=== PATIENT | male | born 1955 | race Caucasian/White ===

== ENCOUNTER 2018-01-12 10:41 | Inpatient (IN) ==
[2018-01-12] MEDS ORDERED: Bisacodyl 10 MG Supp RECTAL PRN (14:45)
[2018-01-12] MEDS ORDERED: Acetaminophen 325 MG Tablet PO PRN (14:45)
[2018-01-12] MEDS ORDERED: Dextrose 50% in Water 50 ML Vial IV.PUSH PRN (14:57)
[2018-01-12] MEDS: Insulin NovoLOG Aspart Correctional Sugar Inj SQ SCH ×2 (15:37→17:31)
--- NOTE | 2018-01-12 15:38 | ECHRPT ---
Indication: CHEST PAIN CONCLUSIONS The left ventricular systolic function is normal with an estimated ejection fraction in the range of 55-60%. The left ventricle is not well visualized. Normal left ventricular size. Wall thickness is normal. No regional wall motion abnormalities are present. Mild thickening of the mitral valve leaflets. Trace mitral valve regurgitation. Calcification of the non-coronary cusp. Mild thickening of the tricuspid valve leaflets. There is trace tricuspid valve regurgitation. The estimated pulmonary arterial pressure is 26.2 mmHg. BP: / HR: Rhythm: Sinus MEASUREMENTS (Male / Female) Normal Values Technical Quality:Good 2D ECHO LV Diastolic Diameter PLAX 4.5 cm 4.2 - 5.9 / 3.9 - 5.3 cm LV Systolic Diameter PLAX 3.8 cm IVS Diastolic Thickness 0.9 cm 0.6 - 1.0 / 0.6 - 0.9 cm LVPW Diastolic Thickness 0.9 cm 0.6 - 1.0 / 0.6 - 0.9 cm LV Relative Wall Thickness 0.4 LVOT Diameter 1.9 cm LA Systolic Diameter LX 3.7 cm 3.0 - 4.0 / 2.7 - 3.8 cm LV Ejection Fraction MOD 4C 44.3 % LV Ejection Fraction 4C AL 46.1 % M-MODE Aortic Root Diameter MM 2.2 cm LA Systolic Diameter MM 3.1 cm LA Ao Ratio MM 1.4 AV Cusp Separation MM 1.5 cm DOPPLER AV Peak Velocity 115.0 cm/s AV Peak Gradient 5.3 mmHg LVOT Peak Velocity 79.0 cm/s LVOT Peak Gradient 2.5 mmHg AV Area Cont Eq pk 1.9 cm MV Area PHT 4.4 cm Mitral E Point Velocity 66.1 cm/s Mitral A Point Velocity 96.7 cm/s Mitral E to A Ratio 0.7 LV E' Lateral Velocity 6.8 cm/s Mitral E to LV E' Lateral Ratio 9.7 LV E' Septal Velocity 4.0 cm/s Mitral E to LV E' Septal Ratio 16.5 TR Peak Velocity 201.0 cm/s TR Peak Gradient 16.2 mmHg Right Atrial Pressure 10.0 mmHg Pulmonary Artery Systolic Pressu 26.2 mmHg Right Ventricular Systolic Press 26.2 mmHg PV Peak Velocity 88.2 cm/s PV Peak Gradient 3.1 mmHg FINDINGS LEFT VENTRICLE The left ventricular systolic function is normal with an estimated ejection fraction in the range of 55-60%. The left ventricle is not well visualized. Normal left ventricular size. Wall thickness is normal. No regional wall motion abnormalities are present. RIGHT VENTRICLE Normal right ventricular size and systolic function. LEFT ATRIUM The left atrial size is normal. RIGHT ATRIUM The right atrial size is normal. ATRIAL SEPTUM Normal atrial septal thickness without atrial level shunting by limited color doppler interrogation. AORTA The aortic root and proximal ascending aorta are normal in size on limited imaging. MITRAL VALVE Mild thickening of the mitral valve leaflets. Trace mitral valve regurgitation. AORTIC VALVE Trileaflet aortic valve. Calcification of the non-coronary cusp. TRICUSPID VALVE Mild thickening of the tricuspid valve leaflets. There is trace tricuspid valve regurgitation. The estimated pulmonary arterial pressure is 26.2 mmHg. PULMONARY VALVE No pulmonary valve regurgitation or stenosis. VESSELS The inferior vena cava is normal in size. PERICARDIUM No pericardial effusion. Mihai Mccormick MD, FACC (Electronically Signed) Final Date:12 January 2018 15:37
[2018-01-12] MEDS ORDERED: Nitroglycerin Drip Premix 50 MG/250 ML BOTTLE IV.CONT PRN (15:48)
--- NOTE | 2018-01-12 15:48 | P.HPCC ---
History of Present Illness Service: Critical care medicine Primary Care Physician: No Primary Care Physician Chief Complaint: Chest pain History of Present Illness: 62-year-old male with a medical history significant for diabetes mellitus, multivessel coronary artery disease diagnosed on recent cardiac catheterization done on 12/14/[address] Paul Rocha from [facility] at [facility] Was supposed to see Dr. Mcpherson on 01/16 for evaluation for CABG in his office. Patient presented to [facility] On 01/11 with chest pain and was diagnosed to have unstable angina. He was admitted to the ICU started on a nitroglycerin drip and full anticoagulation with therapeutic Lovenox. He was chest pain-free this morning. Patient was transferred to [facility] as he was scheduled to be evaluated by Dr. Mcpherson for CABG after transfer center spoke with Dr. Mcpherson. I was requested to admit and accepted the patient in transfer to the ICU on critical care medicine service. I evaluated the patient immediately on his arrival to the ICU. He was resting comfortably no acute distress at that time on a nitroglycerin drip at 20 mics per minute. He denied any chest pain or shortness of breath at the time. He denied any nausea or abdominal discomfort melena or rectal bleeding. He was evaluated by cardiology at [facility] this morning and was recommended transferred to [facility] for CABG. Home medications: Aspirin, Lipitor, metoprolol, glimepiride, metformin, sliding scale insulin, Lantus 10 units subcutaneously daily, gabapentin -to be clarified Inpatient Certification: I certify that the inpatient services were ordered in accordance with Medicare regulations governing the order. This includes certification that hospital inpatient services are reasonable and necessary and in the case of services not specified as inpatient-only under 42 CFR 419.22(n), that they are appropriately provided as inpatient services in accordance to with the 2-midnight benchmark under 43 CFR 412.3(e) Estimated Total Length of Stay (Days): 7 Plans for Post Hospital Care: Not yet determined Review of Systems All other systems reviewed negative except as stated in HPI [facility] - History History Provided By: Patient, Family Member - Medical History Medical History: Medical History (Last Updated 01/12/18 @ 15:34 by Adriano Salas MD) Coronary artery disease Diabetes High cholesterol - Surgical History Surgical History: Surgical History (Last Updated 01/12/18 @ 15:34 by Adriano Salas MD) Hx of cardiac cath - Family History Family History: Family History (Last Updated 01/12/18 @ 15:34 by Adriano Salas MD) Brother Family history of diabetes mellitus - Social History I have reviewed the patient's Social History: Yes - Tobacco History Second Hand Smoke Exposure: No Tobacco Use In Past 30 Days: No Smoking Status: Never smoker - Alcohol History How Often Do You Have a Drink Containing Alcohol: Never - Travel History History of Recent Travel: No Recent Travel in the [place] Within the Last 8 Weeks: No Recent Travel Out of the Country Within the Last 8 Weeks: No Medications and Allergies Active Medications: Active Medications Acetaminophen (Tylenol) 650 mg PO Q6H PRN PRN Reason: PAIN 1-10 AND/OR FEVER >101F Al Hydroxide/Mg Hydroxide (Milk Of Magnesia Liq) 30 ml PO Q12H PRN PRN Reason: Mild Constipation Albuterol (Duoneb Neb (Prn)) 1 ampul NEB Q2HR NEB PRN PRN Reason: WHEEZING Aspirin (Ecotrin) 81 mg PO DAILY LUCIO Atorvastatin Calcium (Lipitor) 20 mg PO HS LUCIO Bisacodyl (Dulcolax Supp) 10 mg RECTAL DAILY PRN PRN Reason: SEVERE CONSITIPATION Chlorhexidine Gluconate (Chlorhexidine 2% Cloth) 3 pack TOPICAL DAILY@0400 LUCIO Stop: 01/18/18 03:59 Chlorhexidine Gluconate (Chlorhexidine 2% Cloth) 3 pack TOPICAL DAILY@0400 PRN PRN Reason: Extra cloth needed Stop: 01/18/18 03:59 Dextrose (D50w Vial) 50 ml IV.PUSH UNSCH PRN PRN Reason: PER HYPOGLYCEMIA PROTOCOL Enoxaparin Sodium (Lovenox Inj) 90 mg SQ Q12HR LUCIO Glucagon (Glucagon Inj) 1 mg OTHER PRN PRN PRN Reason: for Hypoglycemia Protocol Insulin Aspart (Novolog Insulin Correctional Sugar Inj) 0 unit SQ ACHS LUCIO; Protocol Insulin Detemir (Levemir Inj) 10 unit SQ HS LUCIO Lactulose (Lactulose Liq) 30 ml PO DAILY PRN PRN Reason: SEVERE CONSITIPATION Lisinopril (Prinivil) mg LUCIO Metoprolol Tartrate (Lopressor) 50 mg PO BID LUCIO Ondansetron HCl (Zofran Inj) 4 mg IV.PUSH Q6H PRN PRN Reason: NAUSEA OR VOMITING Pantoprazole Sodium (Protonix) 20 mg PO DAILY [facility] Senna/Docusate Sodium (Pearl-Colace) 1 tab PO BID LUCIO Sennosides (Senokot) 17.2 mg PO Q12H PRN PRN Reason: Moderate Constipation Sodium Chloride (Ns Flush) 2 ml IV.FLUSH BID LUCIO Sodium Chloride (Ns Flush) 2 ml IV.FLUSH PRN PRN PRN Reason: FLUSH AFTER USING IV ACCESS Allergies Allergy/AdvReac Type Severity Reaction Status Date / Time No Known Allergies Allergy Unverified 01/12/18 14:45 Results - Labs Labs: Labs done at [facility] On 01/12 White count 7.9, hemoglobin 11.6, hematocrit 37.1, platelets 209 INR 0.9, PTT 28.2 seconds Sodium 136, potassium 4.5, chloride 99, CO2 27, BUN 12.4, creatinine 0.73, glucose 230, calcium 9.5 Chest x-ray report from [facility] Done on 01/11 no active disease Exam Vital signs: Vital Signs 01/12/18 14:28 Temperature 97.7 F Pulse Rate 69 Respiratory Rate 20 Blood Pressure 135/78 Pulse Oximetry 99 Intake & Output 01/11/18 01/12/18 01/12/18 18:59 06:59 18:59 Weight 89 kg Other: Date of Last Bowel Movement 01/11/18 Weight On Admission 89 kg Narrative: HEENT/Neuro: No pallor or icterus, tongue moist, MAYRA, Awake alert oriented 3 , nonfocal grossly, moving all 4 extremities Neck: No JVD Chest/pulmonary: CTA bilaterally Cardiovascular: S1-S2 regular no gallop or murmur GI/abdomen: Soft, nontender, bowel sounds present Extremities: Warm bilaterally, no edema Caprini VTE Risk Assessment Caprini VTE Risk Assessment: Moderate/High Risk (score >= 2) Caprini Risk Assessment Model: Point Value = 1 Point Value = 2 Point Value = 3 Point Value = 5 Age 41-60 Minor surgery BMI > 25 kg/m2 Swollen legs Varicose veins or History of unexplained or recurrent spontaneous Oral contraceptives or hormone replacement Sepsis (< 1 month) Serious lung disease, including pneumonia (< 1 month) Abnormal pulmonary function Acute myocardial infarction Congestive heart failure (< 1 month) History of inflammatory bowel disease Medical patient at bed rest Age 61-74 Arthroscopic surgery Major open surgery (> 45 min) Laparoscopic surgery (> 45 min) Malignancy Confined to bed (> 72 hours) Immobilizing plaster cast Central venous access Age >= 75 History of VTE Family history of VTE Factor V Leiden Prothrombin [id number] Lupus anticoagulant Anticardiolipin antibodies Elevated serum homocysteine Heparin-induced thrombocytopenia Other congenital or acquired thrombophilia Stroke (< 1 month) Elective arthroplasty Hip, pelvis, or leg fracture Acute spinal cord injury (< 1 month) Prophylaxis Regimen: Total Risk Factor Score Risk Level Prophylaxis Regimen 0-1 Low Early ambulation 2 Moderate Order ONE of the following: *Sequential Compression Device (SCD) *Heparin 5000 units SQ BID 3-4 Higher Order ONE of the following medications: *Heparin 5000 units SQ TID *Enoxaparin/Lovenox 40 mg SQ daily (WT < 150 kg, CrCl > 30 mL/min) *Enoxaparin/Lovenox 30 mg SQ daily (WT < 150 kg, CrCl > 10-29 mL/min) *Enoxaparin/Lovenox 30 mg SQ BID (WT < 150 kg, CrCl > 30 mL/min) AND/OR *Sequential Compression Device (SCD) 5 or more Highest Order ONE of the following medications: *Heparin 5000 units SQ TID (Preferred with Epidurals) *Enoxaparin/Lovenox 40 mg SQ daily (WT < 150 kg, CrCl > 30 mL/min) *Enoxaparin/Lovenox 30 mg SQ daily (WT < 150 kg, CrCl > 10-29 mL/min) *Enoxaparin/Lovenox 30 mg SQ BID (WT < 150 kg, CrCl > 30 mL/min) AND *Sequential Compression Device (SCD) Assessment and Plan - Assessment and Plan Plan: 62-year-old male with: Unstable angina Multivessel coronary artery disease Cardiomyopathy-LVEF 40% Uncontrolled diabetes mellitus Hyperlipidemia Plan Neuro: Follow neuro status. Tylenol as needed for pain. Cardiovascular: Continue nitroglycerin drip. Currently chest pain-free. On Lovenox for therapeutic anticoagulation. Continue aspirin, statin, metoprolol. Added lisinopril 2.5 mg daily in view of LVEF 40% per outside records. Stat 2D echo ordered as discussed with Dr. Mcpherson. CT surgery consult and discussed with Dr. Mcpherson who will be evaluating patient for CABG after reviewing cardiac cath films sent on CD. Cardiology consult at [facility] as patient was evaluated by Dr. Paul Rocha by cardiac cath on 01/13. Pulmonary: Supplemental O2 as needed, bronchodilators as needed. GI/liver: 1800 ADA diet. Renal/: Strict intake output, monitor and replete electrolytes, follow BUN/ creatinine. ID: No indication for antibiotics at this time. Heme: Follow CBC Endocrine: Levemir 10 units subcutaneous nightly. Sliding scale insulin medium dose. Hold oral hypoglycemic agents in view of anticipated surgery. Prophylaxis: PPI/SCDs/Lovenox for therapeutic anticoagulation Further recommendations per cardiology and CT surgery. Critical care will continue to follow.
[2018-01-12] MEDS ORDERED: Lisinopril 5 MG Tablet PO ONE (16:00)
--- NOTE | 2018-01-12 16:26 | XR ---
EXAM DATE: 01/12/2018 4:22 PM EST AGE/SEX: 62 years / Male INDICATIONS: Evaluate for congestive heart failure. CLINICAL DATA: This is the patient's initial encounter. Patient reports that signs and symptoms have been present for 1 day and indicates a pain score of 0/10. MEDICAL/SURGICAL HISTORY: None. None. COMPARISON: No prior exams available for comparison. FINDINGS: A single AP view of the chest demonstrates the lungs to be symmetrically aerated without evidence of mass, infiltrate or effusion. The cardiomediastinal contours are unremarkable. Osseous structures a re intact. CONCLUSION: No acute intrathoracic disease. Electronically signed by: Lavelle Justice MD 01/12/2018 4:24 PM EST
--- NOTE | 2018-01-12 19:23 | P.CON ---
History of Present Illness Service: Cardiothoracic surgery Consult date: 01/12/18 Requesting Physician: Adriano Salas Reason for Consult: Coronary artery disease Primary Care Provider: No Primary Care Physician Chief Complaint: Chest pain History of Present Illness: Mr. Shaw is a very pleasant 62-year-old gentleman with a known history of hypertension diabetes, who was seen and evaluated by Dr. Paul Rocha in the [facility] [place] last month for presenting complaints of upper abdominal and epigastric pain. Further workup including a eventual cardiac catheterization revealed moderate left ventricular dysfunction (EF 40%) with associated multivessel coronary artery disease. His circumflex and right coronary arteries are 100% blocked and his LAD has diffuse and critical stenosis throughout. He was supposed to see me on an outpatient basis to discuss surgical options, however, presented to the [facility] with recurrent progressive chest pain. Patient was admitted and started on nitro glycerin paste intervention nitroglycerin drip to control his anginal symptoms. He was eventually transferred to [facility] for further management. At the present time he remains pain-free, hemodynamically stable with no evidence of ongoing ischemia on the nitroglycerin drip. I am now being consulted for surgical evacuation therapy Review of Systems All other systems reviewed negative except as stated in HPI PMFSH - History History Provided By: Patient, Family Member, Medical Record - Medical History Medical History: Medical History (Last Updated 01/12/18 @ 15:34 by Adriano Salas MD) Coronary artery disease Diabetes High cholesterol - Surgical History Surgical History: Surgical History (Last Updated 01/12/18 @ 15:34 by Adriano Salas MD) Hx of cardiac cath - Family History Family History: Family History (Last Updated 01/12/18 @ 15:34 by Adriano Salas MD) Brother Family history of diabetes mellitus - Tobacco History Second Hand Smoke Exposure: No Tobacco Use In Past 30 Days: No Smoking Status: Never smoker - Alcohol History How Often Do You Have a Drink Containing Alcohol: Never - Travel History History of Recent Travel: No Recent Travel in the [place] Within the Last 8 Weeks: No Recent Travel Out of the Country Within the Last 8 Weeks: No Medications and Allergies Active Medications: Active Medications Acetaminophen (Tylenol) 650 mg PO Q6H PRN PRN Reason: PAIN 1-10 AND/OR FEVER >101F Al Hydroxide/Mg Hydroxide (Milk Of Magnesia Liq) 30 ml PO Q12H PRN PRN Reason: Mild Constipation Albuterol (Duoneb Neb (Prn)) 1 ampul NEB Q2HR NEB PRN PRN Reason: WHEEZING Aspirin (Ecotrin) 81 mg PO DAILY LUCIO Atorvastatin Calcium (Lipitor) 20 mg PO HS [facility] Bisacodyl (Dulcolax Supp) 10 mg RECTAL DAILY PRN PRN Reason: SEVERE CONSITIPATION Chlorhexidine Gluconate (Chlorhexidine 2% Cloth) 3 pack TOPICAL DAILY@0400 LUCIO Stop: 01/18/18 03:59 Chlorhexidine Gluconate (Chlorhexidine 2% Cloth) 3 pack TOPICAL DAILY@0400 PRN PRN Reason: Extra cloth needed Stop: 01/18/18 03:59 Dextrose (D50w Vial) 50 ml IV.PUSH UNSCH PRN PRN Reason: PER HYPOGLYCEMIA PROTOCOL Glucagon (Glucagon Inj) 1 mg OTHER PRN PRN PRN Reason: for Hypoglycemia Protocol Nitroglycerin/Dextrose (Nitroglycerin Drip Premix) 50 mg in 250 mls @ 1.5 mls/ hr IV.CONT TITRATE PRN; Protocol PRN Reason: Per Protocol Insulin Aspart (Novolog Insulin Correctional Sugar Inj) 0 unit SQ ACHS [facility]; Protocol Last Admin: 01/12/18 17:31 Dose: 7 unit Insulin Detemir (Levemir Inj) 10 unit SQ HS [facility] Lactulose (Lactulose Liq) 30 ml PO DAILY PRN PRN Reason: SEVERE CONSITIPATION Metoprolol Tartrate (Lopressor) 50 mg PO BID [facility] Miscellaneous (Pill Splitter) 1 each OTHER UNSCH PRN PRN Reason: SEE LABEL COMMENTS Ondansetron HCl (Zofran Inj) 4 mg IV.PUSH Q6H PRN PRN Reason: NAUSEA OR VOMITING Pantoprazole Sodium (Protonix) 20 mg PO DAILY [facility] Senna/Docusate Sodium (Pearl-Colace) 1 tab PO BID [facility] Sennosides (Senokot) 17.2 mg PO Q12H PRN PRN Reason: Moderate Constipation Sodium Chloride (Ns Flush) 2 ml IV.FLUSH BID [facility] Sodium Chloride (Ns Flush) 2 ml IV.FLUSH PRN PRN PRN Reason: FLUSH AFTER USING IV ACCESS Allergies Allergy/AdvReac Type Severity Reaction Status Date / Time No Known Allergies Allergy Unverified 01/12/18 14:45 Physical Exam Vital signs: Vital Signs 01/12/18 14:28 01/12/18 15:00 Temperature 97.7 F 97.7 F Pulse Rate 69 72 Respiratory Rate 20 20 Blood Pressure 135/78 130/77 Pulse Oximetry 99 98 Intake & Output 01/12/18 01/12/18 01/13/18 06:59 18:59 06:59 Intake Total 600 / 600 Output Total 1000 / 1000 Balance -400 / -400 Weight 89 kg Intake: Oral 600 / 600 Output: Urine 1000 / 1000 Other: Date of Last Bowel Movement 01/11/18 # Bowel Movements 0 Weight On Admission 89 kg - Constitutional no acute distress, average body habitus - Routine HEENT Exam Head: Present: normocephalic, atraumatic Eye: Present: EOMI, PERRL ENT: Present: mucous membranes moist - Routine Neck Exam Present: supple, full ROM. Absent: JVD, carotid bruit, lymphadenopathy - Routine Respiratory Exam Present: CTA bilaterally. Absent: accessory muscle use - Routine Cardiovascular Exam Present: RRR, S1, S2. Absent: murmur, gallop, rubs - Routine Abdominal Exam Present: soft, normoactive bowel sounds. Absent: tenderness, distended, rebound , guarding - Routine Extremities Exam Present: full ROM, pulses intact, normal capillary refill. Absent: cyanosis, clubbing, edema - Routine Skin Exam Present: intact. Absent: cyanosis, erythema - Routine Neurological Exam Present: alert, oriented X3, CN II-XII intact, normal reflexes. Absent: sensory deficit, motor deficit - Routine Psychiatric Exam Present: normal affect, normal thought process Results - Labs Labs: Laboratory Results - last 24 hr 01/12/18 01/12/18 15:30 17:17 POC Glucose 288 H Nasal Screen MRSA (PCR) Not detected - Imaging Impressions Chest X-Ray 01/12/18 14:54 CONCLUSION: No acute intrathoracic disease. Assessment and Plan - Assessment (1) Coronary artery disease involving nondalton coronary artery Code(s): I25.10 - Atherosclerotic heart disease of nondalton coronary artery without angina pectoris Status: Acute (2) Unstable angina Code(s): I20.0 - Unstable angina Status: Acute (3) Diabetes mellitus Code(s): E11.9 - Type 2 diabetes mellitus without complications Status: Acute (4) Moderate left ventricular systolic dysfunction Code(s): I51.9 - Heart disease, unspecified Status: Acute - Plan Patient seen and examined, chart and angiograms reviewed and the findings discussed in detail with the patient and his family. Therapeutic options available including CABG was offered. I agree with Dr. Rocha that he will maximally benefit from bypass to his LAD and any other viable target distributions. The risks, complications including but not limited to bleeding, infection, stroke, myocardial injury and , and benefits of the surgical procedure were discussed in details and all questions answered. He understands the provided information and agrees to proceed with the planned operation. We will plan on proceeding with the surgical procedure as describe above on tomorrow morning given his unstable anginal symptoms. In the meantime, 2D echo to ascertain his ventricular function. Thank you for allowing me to participate in the care of this patient.
[2018-01-12] MEDS ORDERED: Famotidine PF Inj 20 MG/2 ML Vial IV.PUSH SCH (21:00)
[2018-01-12] MEDS ORDERED: Enoxaparin Inj 100 MG/ML Syringe SQ SCH (21:00)
[2018-01-12] MEDS ORDERED: Sodium Chlor 0.9% Inj 77.5 ML, Papaverine Inj 60 MG, Nitroglycerin Inj 100 MCG, dilTIAZ... IRRIGATION SCH ×3 (21:30)
[2018-01-12] MEDS ORDERED: Chlorhexidine 4% Topical 120 APPLIC/120 ML Bottle TOPICAL SCH (21:30)
[2018-01-12] MEDS ORDERED: Insulin Regular (For Infusion) 100 UNIT in Sodium Chlor 0.9% Inj 99 ML IV.CONT PRN (21:49)
--- NOTE | 2018-01-12 21:49 | ECG ---
Date Performed: 01/12/2018 Time Performed: 16:03:44 PTAGE: 62 years EKG: Sinus rhythm Inferior infarct - age undetermined Nonspecific T wave changes Abnormal ECG NO PREVIOUS TRACING DOCTOR: Hay Cast Interpretating Date/Time 01/12/2018 21:48:49
[2018-01-12] MEDS: Insulin Detemir Inj 1,000 UNIT/10 ML Vial SQ SCH (22:07)
[2018-01-12] MEDS: Metoprolol Tartrate 50 MG Tablet PO SCH (22:07)
[2018-01-12] MEDS: Senna/Docusate Sodium 8.6/50 MG Tablet PO SCH (22:07)
[2018-01-13 03:52] LABS: Baso % (Auto) 0.5 % (0.0-2.0); Eos # (Auto) 0.4 th/mm3 (0.0-0.4); Eos % (Auto) 4.6 % (0.0-4.0); Hematocrit 38.4 % (39.0-51.0); Hemoglobin 12.4 gm/dL (13.0-17.0); Lymph # (Auto) 3.6 th/mm3 (1.0-4.8); Mean Corpuscular HGB Conc 32.4 % (32.0-36.0); Mean Corpuscular Volume 86.3 fL (80.0-100.0); Mean Platelet Volume 9.3 fL (7.0-11.0); Mono # (Auto) 0.7 th/mm3 (0.0-0.9); Mono % (Auto) 8.9 % (0.0-8.0); Neut # (Auto) 3.4 th/mm3 (1.8-7.7); Platelet Count 202 th/mm3 (150-450); Red Blood Count 4.45 mil/mm3 (4.50-5.90); Red Cell Distribution Width 13.9 % (11.6-17.2); White Blood Count 8.2 th/mm3 (4.0-11.0)
[2018-01-13] MEDS ORDERED: Chlorhexidine Gluconate 2% 1 Pack (2 Cloths) TOPICAL SCH (04:00)
[2018-01-13] MEDS ORDERED: Chlorhexidine Gluconate 2% 1 Pack (2 Cloths) TOPICAL PRN (04:00)
[2018-01-13 04:03] LABS: Activated Partial Thrombo Time 26.7 sec (23.4-31.7); Prothrombin Time 9.8 sec (9.8-11.6)
[2018-01-13 04:12] LABS: Alanine Aminotransferase 28 U/L (12-78); Albumin 2.9 g/dL (3.4-5.0); Anion Gap 7 meq/L (5-15); Aspartate Aminotransferase 15 U/L (15-37); Blood Urea Nitrogen 12 mg/dL (7-18); Calcium 8.4 mg/dL (8.5-10.1); Carbon Dioxide 29.4 meq/L (21.0-32.0); Chloride 108 meq/L (98-107); Glomerular Filtration Rate Greater Than 89 mL/min (>89); Glucose,Random 89 mg/dL (74-106); Phosphorus 3.7 mg/dL (2.5-4.9); Potassium 3.8 meq/L (3.5-5.1); Sodium 144 meq/L (136-145)
[2018-01-13 04:15] LABS: Alkaline Phosphatase 83 U/L (45-117); Total Protein 6.7 g/dL (6.4-8.2)
[2018-01-13] MEDS ORDERED: Chlorhexidine Gluconate 2% 1 Pack (2 Cloths) TOPICAL ONE (05:03)
[2018-01-13] MEDS ORDERED: Metoprolol Tartrate 25 MG Tablet PO ONE (05:03)
[2018-01-13 05:35] LABS: Bilirubin,Urine Negative (Negative); Clarity,Urine Clear (Clear); Color,Urine Straw (Yellw/Straw); Glucose,Urine (UA) 500 or Greater mg/dL (Negative); Leukocyte Esterase,Urine Negative (Negative); Nitrite,Urine Negative (Negative); Specific Gravity,Urine 1.008 (1.002-1.035)
[2018-01-13] MEDS ORDERED: Sodium Chlor 0.9% Inj 500 ML IV.SIG SCH (06:00)
[2018-01-13] MEDS ORDERED: ceFAZolin 2 GM Premix Inj 2 GM/50 ML PIGGYBACK IV.SIG ONE ×2 (06:43→12:23)
[2018-01-13] MEDS ORDERED: Heparin - SQ 10,000 UNITS/ML Vial ONE ×2 (06:43→07:58)
[2018-01-13] MEDS ORDERED: Sodium Chloride 0.9% Irr Bot 500 ML, ceFAZolin Inj 500 MG IRRIGATION SCH ×2 (06:45)
[2018-01-13] MEDS ORDERED: fentaNYL Citrate Inj 1,000 MCG/20 ML Vial ONE (06:54)
[2018-01-13] MEDS ORDERED: Sugammadex Inj 200 MG/2 ML Vial IV.PUSH ONE (06:55)
[2018-01-13] MEDS ORDERED: Protamine Sulfate Inj 50 MG/5 ML Vial IV.CONT ONE (07:46)
[2018-01-13] MEDS ORDERED: Sodium Chlor 0.9% Inj 200 ML IV.CONT ONE (07:46)
[2018-01-13] MEDS ORDERED: Phenylephrine/NS 1000 MCG/10ML Syringe IV.PUSH ONE (07:46)
[2018-01-13] MEDS ORDERED: Sodium Chlor 0.9% Inj 250 ML IV.CONT ONE (07:46)
[2018-01-13] MEDS ORDERED: Heparin - SQ 10,000 UNITS/ML Vial SQ ONE (07:46)
[2018-01-13] MEDS ORDERED: Dexmedetomidine Inj 200 MCG/2 ML Vial IV.CONT ONE (07:46)
[2018-01-13] MEDS ORDERED: Sodium Chlor 0.9% Inj 500 ML IV.CONT ONE (07:46)
[2018-01-13] MEDS ORDERED: Artificial Tears Opth Oint 3.5 GM Tube EACH EYE ONE (07:46)
[2018-01-13] MEDS ORDERED: Heparin 10,000 UNITS/10 ML Vial (for IV use) ONE (07:59)
[2018-01-13] MEDS ORDERED: Lisinopril 5 MG Tablet PO SCH (09:00)
[2018-01-13] MEDS ORDERED: RESP: Racemic Epinephrine 2.25% 0.5 ML Neb NEB PRN (12:24)
[2018-01-13] MEDS ORDERED: Calcium Chloride Inj 1 GM/10 ML Syringe IV.PUSH PRN (12:24)
[2018-01-13] MEDS ORDERED: Metoprolol Inj 5 MG/5 ML Vial IV.PUSH PRN (12:24)
[2018-01-13] MEDS ORDERED: Dexmedetomidine Inj 200 MCG in Sodium Chlor 0.9% Inj 48 ML IV.CONT PRN (12:24)
[2018-01-13] MEDS ORDERED: Potassium Chlor 20 mEq Premix 20 MEQ/100 ML PIGGYBACK IV.SIG PRN ×2 (12:24)
[2018-01-13] MEDS ORDERED: Magnesium Sulfate Inj 2 GM in Sodium Chlor 0.9% Inj 96 ML IV.SIG PRN ×4 (12:24)
[2018-01-13] MEDS ORDERED: Insulin Regular (For Infusion) 100 UNIT in Sodium Chlor 0.9% Inj 99 ML IV.CONT PRN (12:24)
[2018-01-13] MEDS ORDERED: fentaNYL Citrate Inj 100 MCG/2 ML Ampul IV.PUSH PRN (12:24)
[2018-01-13] MEDS ORDERED: Morphine Sulfate Inj 2 MG/ML Vial IV.PUSH PRN (12:24)
[2018-01-13] MEDS ORDERED: Phenylephrine Inj 40 MG in Sodium Chlor 0.9% Inj 496 ML IV.CONT PRN (12:24)
[2018-01-13] MEDS ORDERED: Clevidipine Inj 25 MG/50 ML VIAL IV.CONT PRN (12:24)
[2018-01-13] MEDS ORDERED: Post-op Orders (for Pharmacy) OTHER STA (12:24)
--- NOTE | 2018-01-13 12:33 | P.OP ---
Date of procedure: 01/13/18 Anesthesia: GETA Surgeon: Chu Mcpherson MD Operation and Findings: PREPROCEDURE DIAGNOSES 1. Severe Multi Vessel Coronary Artery Disease. 2. Unstable angina 3. Diabetes mellitus with neuropathy POSTPROCEDURE DIAGNOSES Same SURGICAL PROCEDURE 1. Urgent Off-pump Coronary Artery Bypass Grafting x 3 with Left Internal Mammary Artery (WATTERS) to Left Anterior Descending (LAD), reverse saphenous vein graft to obtuse Marginal branch of the left Circumflex artery, reverse saphenous vein graft to the distal right Coronary artery 2. Left leg Endoscopic Vein Arrington 3. Intraoperative Vein Mapping. SURGEON Chu Mcpherson MD WEEDER AKIRA Clancy ANESTHESIA General endotracheal HUMANITIES TEACHER DIEGO Loza MD PREPARATION ChloraPrep. COUNTS Needle, sponge, and instrument counts were correct. DRAINS Two 32-Arabic mediastinal tubes. COMPLICATIONS None. INDICATIONS FOR PROCEDURE The patient is a 62-year-old presenting with chest pain. Patient was noted to have multi-vessel coronary artery disease with totally occluded circumflex and right coronary arteries and critical disease involving the LAD. The patient is being brought to the operating room for surgical revascularization therapy. PROCEDURE Patient was brought to the operating room and placed supine on the OR table. Following the induction of adequate general endotracheal anesthesia and placement of appropriate monitoring devices, intraoperative vein mapping was performed which revealed good-caliber conduit in bilateral lower extremities. The patient was then prepped and draped in standard sterile fashion. Next, 2500 units of intravenous heparin was given. The left greater saphenous vein was harvested endoscopically. This appeared to be a useable-caliber conduit. Simultaneously, a median sternotomy was performed and the left internal mammary artery dissected free off the posterior sternal table. The patient was systemically heparinized and anticoagulation monitored by serial ACT measurements. The internal mammary artery had excellent pulsatile flow in it and was a good-caliber conduit. The pericardium was then divided in the midline , the cradle created and targets analyzed. At this point, all anastomoses were performed in a beating-heart fashion using the [employer] stabilizing system. The left internal mammary artery was anastomosed to the mid LAD (1.75 mm) in an end- to-side fashion using 7-0 Prolene. Segment of saphenous vein graft was then anastomosed to the OM1 (1 mm) in an end-to-side fashion using 7-0 Prolene. The final segment was anastomosed to the RPDA (1.75 mm) in an end-to-side fashion using 7-0 Prolene. Of note, all of his coronary arteries are very heavily and diffusely diseased and very small in caliber with significant calcification through the entire courses. The proximal anastomoses were then constructed to the ascending aorta in a running manner using 6-0 Prolene. All anastomotic sites were inspected and appeared to be hemostatic and patent. Protamine solution was given. Strict hemostasis was assured. The closure was undertaken. 2 chest tubes were placed. The pericardium was reapproximated in the midline. The sternum was approximated using sternal wires. The muscular and fascial layer were then closed in 3 layers. The endoscopic vein harvest site was closed in 2 layers. The patient tolerated the procedure well and was transferred to CVICU in stable condition.
[2018-01-13] MEDS: Senna/Docusate Sodium 8.6/50 MG Tablet PO SCH ×2 (12:39→21:02)
[2018-01-13] MEDS: Pantoprazole Sodium 20 MG DR Tablet PO SCH (12:39)
[2018-01-13] MEDS: Metoprolol Tartrate 50 MG Tablet PO SCH ×2 (12:39→21:02)
[2018-01-13] MEDS ORDERED: ceFAZolin Inj 2,000 MG in Sodium Chlor 0.9% Inj 80 ML IV.SIG SCH (13:00)
[2018-01-13] MEDS: Insulin Regular (For Infusion) 100 UNIT in Sodium Chlor 0.9% Inj 99 ML IV.CONT PRN ×2 (13:00→22:51)
--- NOTE | 2018-01-13 13:32 | XR ---
EXAM DATE: 01/13/2018 1:27 PM EST AGE/SEX: 62 years / Male INDICATIONS: Patient is post op CABG. CLINICAL DATA: This is the patient's initial encounter. Patient reports that signs and symptoms have been present for 1 day and indicates a pain score of Nonresponsive. MEDICAL/SURGICAL HISTORY: Cardiovascular disease. CABG. COMPARISON: [facility] [place], CHEST 1V SINGLE AP, 01/12/2018. . FINDINGS: Since yesterday, patient has undergone median sternotomy and coronary artery bypass graft operation. There is very mild patchy atelectasis of both lungs. No large effusion seen. No pneumothorax. Mediastinal drain and left chest tube present. Endotracheal tube tip is approximately 3 cm above the rohini. Nasogastric tube courses into the stomach. There is a right internal jugular central venous c atheter with tip in the superior vena cava. CONCLUSION: 1. Postop median sternotomy and coronary artery pass graft operation. 2. Mild patchy atelectasis of both lungs. No mid thorax or large effusions seen. 3. Line and tube positions appear appropriate as above. Electronically signed by: Donnie Fuller MD 01/13/2018 1:30 PM EST
[2018-01-13] MEDS: Calcium Chloride Inj 1 GM in Sodium Chlor 0.9% Inj 100 ML IV.SIG PRN (13:36)
--- NOTE | 2018-01-13 13:39 | P.PNCV ---
- Note Subjective/Hospital Course: Risk Model and Variables - STS Adult Cardiac Surgery Database Version 2.81 RISK SCORES About the STS Risk Calculator Procedure: CAB Only Risk of Mortality: 2.115% Morbidity or Mortality: 20.799% Long Length of Stay: 9.788% Short Length of Stay: 31.775% Permanent Stroke: 1.938% Prolonged Ventilation: 19.038% DSW Infection: 1.24% Renal Failure: 2.806% Reoperation: 7.516% Objective: Vital Signs - 24 hr 01/12/18 14:28 01/12/18 15:00 01/12/18 19:00 Temperature 97.7 F 97.7 F 98.5 F Pulse Rate 69 72 74 Respiratory Rate 20 20 18 Blood Pressure 135/78 130/77 151/97 H Pulse Oximetry 99 98 97 01/12/18 20:00 01/12/18 23:00 01/13/18 03:00 Temperature 98.2 F 97.8 F Pulse Rate 75 75 70 Respiratory Rate 16 18 Blood Pressure 157/99 H 118/67 Pulse Oximetry 97 64 L 01/13/18 07:00 01/13/18 13:33 Temperature 98.3 F 98.0 F Pulse Rate 62 78 Respiratory Rate 18 12 Blood Pressure 137/78 149/94 H Pulse Oximetry 98 97 Labs: Laboratory Results - last 12 hr 01/12/18 01/13/18 01/13/18 22:47 01:38 02:27 WBC RBC Hgb Hct MCV MCH MCHC RDW Plt Count MPV Neut % (Auto) Lymph % (Auto) Dyer % (Auto) Eos % (Auto) Baso % (Auto) Neut # (Auto) Lymph # (Auto) Dyer # (Auto) Eos # (Auto) Baso # (Auto) WBC Differential Differential Comment PT INR APTT Sodium Potassium Chloride Carbon Dioxide Anion Gap BUN Creatinine Estimated GFR POC Glucose 110 93 Random Glucose Calcium Phosphorus Magnesium Total Bilirubin AST ALT Alkaline Phosphatase Troponin I Total Protein Albumin Urine Color Urine Clarity Urine pH Ur Specific [place] Urine Protein Urine Glucose (UA) Urine Ketones Urine Occult Blood Urine Nitrate Urine Bilirubin Urine Urobilinogen Ur Leukocyte Esterase Urine RBC Micro UA Comment Ur Microscopic Review Urine Culture Comments Blood Type B Positive Antibody Screen Negative MTS Gel Crossmatch See Detail 01/13/18 01/13/18 01/13/18 03:21 03:21 03:21 WBC 8.2 RBC 4.45 L Hgb 12.4 L Hct 38.4 L MCV 86.3 MCH 28.0 MCHC 32.4 RDW 13.9 Plt Count 202 MPV 9.3 Neut % (Auto) 42.0 Lymph % (Auto) 44.0 Dyer % (Auto) 8.9 H Eos % (Auto) 4.6 H Baso % (Auto) 0.5 Neut # (Auto) 3.4 Lymph # (Auto) 3.6 Dyer # (Auto) 0.7 Eos # (Auto) 0.4 Baso # (Auto) 0.0 WBC Differential . Differential Comment Auto diff final PT 9.8 INR 1.0 APTT 26.7 Sodium 144 Potassium 3.8 Chloride 108 H Carbon Dioxide 29.4 Anion Gap 7 BUN 12 Creatinine 0.71 Estimated GFR Greater than 89 POC Glucose Random Glucose 89 Calcium 8.4 L Phosphorus 3.7 Magnesium 2.0 Total Bilirubin 0.3 AST 15 ALT 28 Alkaline Phosphatase 83 Troponin I Less than 0.02 L Total Protein 6.7 Albumin 2.9 L Urine Color Urine Clarity Urine pH Ur Specific [place] Urine Protein Urine Glucose (UA) Urine Ketones Urine Occult Blood Urine Nitrate Urine Bilirubin Urine Urobilinogen Ur Leukocyte Esterase Urine RBC Micro UA Comment Ur Microscopic Review Urine Culture Comments Blood Type Antibody Screen MTS Gel Crossmatch 01/13/18 01/13/18 01/13/18 03:31 04:28 04:40 WBC RBC Hgb Hct MCV MCH MCHC RDW Plt Count MPV Neut % (Auto) Lymph % (Auto) Dyer % (Auto) Eos % (Auto) Baso % (Auto) Neut # (Auto) Lymph # (Auto) Dyer # (Auto) Eos # (Auto) Baso # (Auto) WBC Differential Differential Comment PT INR APTT Sodium Potassium Chloride Carbon Dioxide Anion Gap BUN Creatinine Estimated GFR POC Glucose 78 83 Random Glucose Calcium Phosphorus Magnesium Total Bilirubin AST ALT Alkaline Phosphatase Troponin I Total Protein Albumin Urine Color Straw Urine Clarity Clear Urine pH 6.0 Ur Specific [place] 1.008 Urine Protein Negative Urine Glucose (UA) 500 or greater Urine Ketones Negative Urine Occult Blood Negative Urine Nitrate Negative Urine Bilirubin Negative Urine Urobilinogen Less than 2 Ur Leukocyte Esterase Negative Urine RBC Less than 1 Micro UA Comment Culture not ind Ur Microscopic Review Not Reportable Urine Culture Comments Culture not ind Blood Type Antibody Screen MTS Gel Crossmatch Result Diagrams: 01/13/18 03:21 01/13/18 03:21
[2018-01-13] MEDS: ceFAZolin 2 GM Premix Inj 2 GM/50 ML PIGGYBACK IV.SIG SCH ×2 (13:58→21:02)
[2018-01-13] MEDS: Albumin Human 5% Inj 250 ML IV.SIG PRN (14:32)
--- NOTE | 2018-01-13 14:55 | P.PNCC ---
Subjective Subjective Remarks/Hospital Course: 01/12: 62-year-old male with a medical history significant for diabetes mellitus , multivessel coronary artery disease diagnosed on recent cardiac catheterization done on 12/14/[address] Paul Rocha from [facility] at [facility] Was supposed to see Dr. Mcpherson on 01/16 for evaluation for CABG in his office. Patient presented to [facility] On 01/11 with chest pain and was diagnosed to have unstable angina. He was admitted to the ICU started on a nitroglycerin drip and full anticoagulation with therapeutic Lovenox. He was chest pain-free this morning. Patient was transferred to [facility] as he was scheduled to be evaluated by Dr. Mcpherson for CABG after transfer center spoke with Dr. Mcpherson. I was requested to admit and accepted the patient in transfer to the ICU on critical care medicine service. I evaluated the patient immediately on his arrival to the ICU. He was resting comfortably no acute distress at that time on a nitroglycerin drip at 20 mics per minute. He denied any chest pain or shortness of breath at the time. He denied any nausea or abdominal discomfort melena or rectal bleeding. He was evaluated by cardiology at [facility] this morning and was recommended transferred to [facility] for CABG. 01/13: Patient underwent three-vessel CABG under general anesthesia by Dr. Mcpherson today, tolerated procedure well and was subsequently transferred to CVICU. I saw the patient postoperatively following his arrival to CVICU. At that time he was sedated, orally intubated on mechanical ventilation following surgery. Objective Vital Signs / I&O: Vital Signs 01/12/18 15:00 01/12/18 19:00 01/12/18 20:00 Temperature 97.7 F 98.5 F Pulse Rate 72 74 75 Respiratory Rate 20 18 Blood Pressure 130/77 151/97 H Pulse Oximetry 98 97 01/12/18 23:00 01/13/18 03:00 01/13/18 07:00 Temperature 98.2 F 97.8 F 98.3 F Pulse Rate 75 70 62 Respiratory Rate 16 18 18 Blood Pressure 157/99 H 118/67 137/78 Pulse Oximetry 97 64 L 98 01/13/18 12:45 01/13/18 13:33 Temperature 98.0 F Pulse Rate 78 Respiratory Rate 17 12 Blood Pressure 149/94 H Pulse Oximetry 97 97 Intake & Output 01/12/18 01/13/18 01/13/18 18:59 06:59 18:59 Intake Total 600 / 600 3540 / 3540 Output Total 1000 / 1000 1600 / 1600 1400 / 1400 Balance -400 / -400 -1600 / -1600 2140 / 2140 Weight 89 kg 91.5 kg Intake: IV 250 / 250 Ofirmev Inj 1,000 mg In 100 ml 100 / 100 @ 400 mls/hr IV.SIG Q6H LUCIO Rx# :[id number] Ancef 2 GM Premix Inj 2 gm In 150 / 150 50 ml @ 100 mls/hr IV.SIG Q8H LUCIO Rx#:[id number] Oral 600 / 600 Anesthesia Amount 3000 / 3000 Cell Saver Amount 290 / 290 Output: Urine 1000 / 1000 1600 / 1600 Estimated Blood Loss 600 / 600 Urine Amount (Catheter) 800 / 800 Indwelling Temp Sensing 800 / 800 Catheter Other: # Voids 2 Date of Last Bowel Movement 01/11/18 01/11/18 01/11/18 # Bowel Movements 0 Weight On Admission 89 kg Result Diagrams: 01/13/18 03:21 01/13/18 03:21 Imaging: Impressions Chest X-Ray 01/12/18 14:54 CONCLUSION: No acute intrathoracic disease. Chest X-Ray 01/13/18 12:25 CONCLUSION: 1. Postop median sternotomy and coronary artery pass graft operation. 2. Mild patchy atelectasis of both lungs. No mid thorax or large effusions seen. 3. Line and tube positions appear appropriate as above. Objective Remarks: HEENT/ Neuro: Sedated, orally intubated, Pallor present, no icterus, tongue/ mucosa moist Neck: No JVD Chest/Pulm: on mech vent, good air entry bilaterally, no wheezing or crackles CVS: S1-S2 regular, no murmur, dressing over sternotomy site in place. Chest tube x1, mediastinal tube x1 with minimal bloody drainage GI/abdomen: soft, nontender, bowel sounds sluggish Extremities: warm bilaterally, no edema. Dressing over saphenous vein graft harvest site left lower extremity noted Assessment and Plan - Assessment and Plan Plan: 62-year-old male with: Unstable angina Multivessel coronary artery disease status post three-vessel CABG postop day 0 Cardiomyopathy-LVEF 40% Uncontrolled diabetes mellitus Hyperlipidemia Plan Neuro: Off sedation following surgery awaiting improvement in neuro status for CPAP trials, follow neuro status. Pain medications per CT surgery protocol Cardiovascular: Status post three-vessel CABG on 01/[address] Mcpherson. Follow chest tube/mentation output. Hemodynamic monitoring, watch for hypotension. Continue aspirin, statin, metoprolol, lisinopril when okay with CT surgery. Cardiology consult at [facility] as patient was evaluated by Dr. Paul Rocha by cardiac cath on 01/13. Pulmonary: On mechanical ventilation. Wean following improvement in neurologic status with plan to extubate. Bronchodilators as needed. GI/liver: N.p.o. currently. Renal/: Strict intake output, monitor and replete electrolytes, follow BUN/ creatinine. ID: Preop antibiotic prophylaxis per CT surgery Heme: Follow CBC Endocrine: Insulin drip for glycemic control currently. Prophylaxis: PPI/SCDs. Start subcutaneous Lovenox when okay with CT surgery Further recommendations per cardiology and CT surgery. Condition critical Time spent on critical care excluding procedures 35 minutes
[2018-01-13] MEDS: Potassium Chlor 20 mEq Premix 20 MEQ/100 ML PIGGYBACK IV.SIG PRN ×2 (16:05→17:42)
--- NOTE | 2018-01-13 19:09 | MB ---
cc: Himanshu Shrestha MD DATE: 01/13/2018 REASON FOR CONSULTATION: Coronary artery disease, patient known to Dr. Paul Rocha. HISTORY OF PRESENT ILLNESS: The patient is a 62-year-old male, followed in our office by Dr. Paul Rocha, with a history of diabetes, hypertension and hyperlipidemia, who recently underwent a cardiac catheterization by Dr. Rocha showing severe 3-vessel coronary artery disease. He underwent triple bypass surgery this morning without complication by Dr. Chu Mcpherson. His postoperative course has been so far uneventful. At this time, the patient is sedated and sleeping comfortably. PAST MEDICAL HISTORY: 1. Coronary artery disease, status post triple bypass surgery this morning with a left internal mammary artery to the LAD, vein graft to the right coronary artery, vein graft to the left circumflex. His preoperative ejection fraction by echo was 55% to 60%. 2. Hyperlipidemia. 3. Diabetes. 4. Hypertension. CURRENT CARDIAC MEDICATIONS: 1. Aspirin 81 mg p.o. daily. 2. Atorvastatin 20 mg p.o. at bedtime. 3. Metoprolol tartrate 50 mg p.o. b.i.d. ALLERGIES: NO KNOWN DRUG ALLERGIES. FAMILY HISTORY: Noncontributory. SOCIAL HISTORY: The patient has no history of alcohol or tobacco abuse. REVIEW OF SYSTEMS: Currently unobtainable. PHYSICAL EXAMINATION: VITAL SIGNS: Blood pressure 134/72 with a pulse of 103, respirations 14. GENERAL: He is a well-developed, well-nourished, male, currently somnolent and sedated. HEENT: Jugular venous pressure appears to be normal. Carotid pulses are 2+ bilaterally and without bruits. CHEST: Reveals clear lungs bethea anteriorly. CARDIAC: He has a regular rhythm and rate without S3, S4, or murmur. ABDOMEN: He has a soft abdomen. No definite bowel sounds are evident. There is no definite hepatosplenomegaly. EXTREMITIES: Reveal no clubbing, cyanosis or edema. Dressing is evident over the left lower extremity saphenous vein graft harvest sites. LABORATORY DATA: EKG shows sinus rhythm, inferior wall infarct, age indeterminate. Chest x-ray shows no acute disease. LABORATORY DATA: Includes WBC 8.2, hemoglobin 12.4, platelets 202. Potassium 3.8, BUN 12, creatinine 0.71. Troponin less than 0.02. IMPRESSION: Stable cardiac status after 3 vessel bypass surgery today in a 62-year-old male with a history of diabetes, hypertension, hyperlipidemia. His postoperative course has been uneventful so far. There is no definite evidence for congestive heart failure. Reportedly, his ejection fraction is 55% to 60% on echo yesterday. RECOMMENDATIONS: 1. Continue usual postoperative care. 2. Continue statin therapy and daily aspirin as well as his beta shobha. 3. Will follow up as needed. Himanshu Shrestha MD GHR/ct , 03:50 PM , 03:57 PM MTDD
[2018-01-13] MEDS: Insulin Detemir Inj 1,000 UNIT/10 ML Vial SQ SCH (21:01)
[2018-01-13] MEDS: Amiodarone 200 MG Tablet PO SCH (21:01)
[2018-01-13] MEDS: Ketorolac Inj 30 MG/ML (IVP) Vial IV.PUSH PRN (21:03)
[2018-01-14] MEDS: Albumin Human 5% Inj 250 ML IV.SIG PRN (01:14)
[2018-01-14] MEDS: Calcium Chloride Inj 1 GM in Sodium Chlor 0.9% Inj 100 ML IV.SIG PRN (02:12)
[2018-01-14] MEDS: Ketorolac Inj 30 MG/ML (IVP) Vial IV.PUSH PRN ×2 (04:22→13:28)
--- NOTE | 2018-01-14 04:37 | XR ---
EXAM DATE: 01/14/2018 4:12 AM EST AGE/SEX: 62 years / Male INDICATIONS: Shortness of breath, possible pneumothorax. CLINICAL DATA: This is the patient's subsequent encounter. Patient reports that signs and symptoms h ave been present for 3 days and indicates a pain score of 6/10. MEDICAL/SURGICAL HISTORY: Cardiovascular disease. CABG. COMPARISON: [facility], CHEST 1V SINGLE AP, 01/13/2018. . FINDINGS: A single AP view of the chest demonstrates interval extubation and removal of the nasogastric tube. 2 thoracostomy tubes and right-sided central line remain. No pneumothorax. Mild atelectasis within the left base. Tiny left effusion. Right lung is clear. Heart is normal in size. Median sternotomy wires . CONCLUSION: 1. No pneumothorax. 2. Interval extubation. 3. Mild left basilar atelectasis with small left effusion. Electronically signed by: Kirby Lopez MD 01/14/2018 4:36 AM EST
[2018-01-14] MEDS: ceFAZolin 2 GM Premix Inj 2 GM/50 ML PIGGYBACK IV.SIG SCH ×3 (05:34→23:15)
[2018-01-14 06:07] LABS: Hematocrit 30.8 % (39.0-51.0); Hemoglobin 10.3 gm/dL (13.0-17.0); Mean Corpuscular HGB Conc 33.6 % (32.0-36.0); Mean Corpuscular Hemoglobin 28.8 pg (27.0-34.0); Mean Corpuscular Volume 85.8 fL (80.0-100.0); Mean Platelet Volume 9.1 fL (7.0-11.0); Platelet Count 176 th/mm3 (150-450); Red Blood Count 3.58 mil/mm3 (4.50-5.90); White Blood Count 9.9 th/mm3 (4.0-11.0)
[2018-01-14 06:34] LABS: Anion Gap 7 meq/L (5-15); Blood Urea Nitrogen 11 mg/dL (7-18); Calcium 8.3 mg/dL (8.5-10.1); Carbon Dioxide 26.1 meq/L (21.0-32.0); Chloride 110 meq/L (98-107); Glomerular Filtration Rate Greater Than 89 mL/min (>89); Glucose,Random 129 mg/dL (74-106); Magnesium 1.9 mg/dL (1.5-2.5); Sodium 143 meq/L (136-145)
--- NOTE | 2018-01-14 08:04 | P.PNCV ---
- Note Subjective/Hospital Course: 01/13 SURGICAL PROCEDURE 1. Urgent Off-pump Coronary Artery Bypass Grafting x 3 with Left Internal Mammary Artery (WATTERS) to Left Anterior Descending (LAD), reverse saphenous vein graft to obtuse Marginal branch of the left Circumflex artery, reverse saphenous vein graft to the distal right Coronary artery 2. Left leg Endoscopic Vein Kinsey 3. Intraoperative Vein Mapping. 01/14 Clinically and hemodynamically stable Extubated and tolerating Maintain chest tube to drainage Transfer to see PCU Objective: Vital Signs - 24 hr 01/13/18 12:45 01/13/18 13:00 01/13/18 13:33 Temperature 98.0 F Pulse Rate 80 78 Respiratory Rate 17 12 Blood Pressure 149/94 H Pulse Oximetry 97 97 01/13/18 14:48 01/13/18 15:00 01/13/18 15:10 Temperature 97.8 F Pulse Rate 77 86 Respiratory Rate 14 Blood Pressure 140/85 Pulse Oximetry 99 98 01/13/18 16:05 01/13/18 19:00 01/13/18 22:04 Temperature 98.4 F Pulse Rate 90 80 102 H Respiratory Rate 16 14 18 Blood Pressure 114/78 Pulse Oximetry 99 99 01/13/18 23:00 01/14/18 01:00 01/14/18 03:00 Temperature 98.2 F 100 F H Pulse Rate 101 H 93 H Respiratory Rate 14 14 14 Blood Pressure 89/49 L 125/74 Pulse Oximetry 98 100 01/14/18 04:54 01/14/18 07:00 Temperature 98.1 F Pulse Rate 97 H 95 H Respiratory Rate 16 18 Blood Pressure 131/73 Pulse Oximetry 100 Labs: Laboratory Results - last 12 hr 01/13/18 01/13/18 01/13/18 20:53 21:49 23:20 WBC RBC Hgb Hct MCV MCH MCHC RDW Plt Count MPV Sodium Potassium Chloride Carbon Dioxide Anion Gap BUN Creatinine Estimated GFR POC Glucose 146 H 135 H 111 H Random Glucose Calcium Magnesium 01/14/18 01/14/18 01/14/18 01:10 04:15 05:40 WBC 9.9 RBC 3.58 L Hgb 10.3 L D Hct 30.8 L MCV 85.8 MCH 28.8 MCHC 33.6 RDW 14.0 Plt Count 176 MPV 9.1 Sodium Potassium Chloride Carbon Dioxide Anion Gap BUN Creatinine Estimated GFR POC Glucose 95 112 H Random Glucose Calcium Magnesium 01/14/18 01/14/18 01/14/18 05:40 06:12 07:19 WBC RBC Hgb Hct MCV MCH MCHC RDW Plt Count MPV Sodium 143 Potassium 4.0 Chloride 110 H Carbon Dioxide 26.1 Anion Gap 7 BUN 11 Creatinine 0.73 Estimated GFR Greater than 89 POC Glucose 126 H 122 H Random Glucose 129 H Calcium 8.3 L Magnesium 1.9 Result Diagrams: 01/14/18 05:40 01/14/18 05:40
[2018-01-14] MEDS ORDERED: Sod Phosphate/Sod Biphosphate (Adult) Enema 133 ML Bottle RECTAL PRN (08:06)
[2018-01-14] MEDS: Amiodarone 200 MG Tablet PO SCH ×2 (09:23→20:20)
[2018-01-14] MEDS: Senna/Docusate Sodium 8.6/50 MG Tablet PO SCH ×2 (09:23→20:18)
[2018-01-14] MEDS: Metoprolol Tartrate 50 MG Tablet PO SCH ×2 (09:23→20:20)
[2018-01-14] MEDS: Pantoprazole Sodium 20 MG DR Tablet PO SCH (09:23)
[2018-01-14] MEDS: Multivitamin/Minerals Therapeutic Tablet PO SCH (09:23)
--- NOTE | 2018-01-14 10:13 | ECG ---
Date Performed: 01/14/2018 Time Performed: 05:31:14 PTAGE: 62 years EKG: Sinus tachycardia. Inferior infarct - age undetermined Abnormal ECG PREVIOUS TRACING : 01/12/2018 16.03 Compared to prior electrocardiogram, rate has increased . DOCTOR: Hay Cast Interpretating Date/Time 01/14/2018 10:13:09
[2018-01-14] MEDS: Insulin NovoLOG Aspart Correctional Sugar Inj SQ SCH ×4 (10:29→21:38)
--- NOTE | 2018-01-14 17:57 | P.DIET ---
Nutritional Evaluation Type of nutrition evaluation: [place] [facility] [place] [facility] [place] [facility] [place] Subjective Subjective Comments: Pt and Pt's son-in-law Isabel in room at time of this visit. [facility] via our pathology secretary/transcriptionist. Pt's son-in -law and his prepare food for the pt and the son-in-law speaks and reads Tuvaluan and requests the diet education be provided to him in Tu[place]uan and he will assist the pt. RN Jonnie present during this visit. Objective - Diagnosis Unstable Angina - Objective Dietitian Reviewed in Medical Record: Current diet, Medical history Diet Order: 2200ADA Oral Diet Intake Amount: Good 75-90% Objective Comments: PMH includes: CAD, DM, high cholesterol 01/13 CABG x 3 Assessment Assessment: Per pt and pt's son-in-law request, diet education for 2200ADA diet provided in [place]uan to pt's son-in-law. Pt's son-in-law's questions answered to his satisfaction. Dietitian contact info provided fro additional questions as needed. Recommendations: 1. Diet Education for 2200ADA diet provided in [place] to pt's son-in-law 2. Pt's son-in-law's questions answered to his satisfaction 3. Dietitian contact info provided fro additional questions as needed
[2018-01-14] MEDS: Docusate Sodium 100 MG Capsule PO SCH (20:17)
[2018-01-14] MEDS: Insulin Detemir Inj 1,000 UNIT/10 ML Vial SQ SCH (21:38)
[2018-01-15] MEDS: Insulin NovoLOG Aspart Correctional Sugar Inj SQ SCH ×6 (03:19→21:39)
[2018-01-15 03:48] LABS: Baso % (Auto) 0.4 % (0.0-2.0); Eos # (Auto) 0.2 th/mm3 (0.0-0.4); Eos % (Auto) 1.6 % (0.0-4.0); Hematocrit 30.1 % (39.0-51.0); Hemoglobin 10.1 gm/dL (13.0-17.0); Lymph # (Auto) 2.9 th/mm3 (1.0-4.8); Lymph % (Auto) 30.2 % (9.0-44.0); Mean Corpuscular HGB Conc 33.6 % (32.0-36.0); Mean Corpuscular Hemoglobin 28.5 pg (27.0-34.0); Mean Corpuscular Volume 84.6 fL (80.0-100.0); Mean Platelet Volume 9.2 fL (7.0-11.0); Mono % (Auto) 10.5 % (0.0-8.0); Neut # (Auto) 5.6 th/mm3 (1.8-7.7); Neut % (Auto) 57.3 % (16.0-70.0); Platelet Count 181 th/mm3 (150-450); Red Blood Count 3.56 mil/mm3 (4.50-5.90); Red Cell Distribution Width 14.1 % (11.6-17.2); White Blood Count 9.7 th/mm3 (4.0-11.0)
[2018-01-15 04:15] LABS: Calcium 8.1 mg/dL (8.5-10.1); Carbon Dioxide 26.9 meq/L (21.0-32.0); Potassium 4.1 meq/L (3.5-5.1)
[2018-01-15] MEDS: Ketorolac Inj 30 MG/ML (IVP) Vial IV.PUSH PRN (05:34)
[2018-01-15] MEDS: Multivitamin/Minerals Therapeutic Tablet PO SCH (08:35)
[2018-01-15] MEDS: Senna/Docusate Sodium 8.6/50 MG Tablet PO SCH ×2 (08:35→20:29)
[2018-01-15] MEDS: Pantoprazole Sodium 20 MG DR Tablet PO SCH (08:36)
[2018-01-15] MEDS: Metoprolol Tartrate 50 MG Tablet PO SCH ×2 (08:36→20:30)
[2018-01-15] MEDS: Polyethylene Glycol 3350 17 GM Packet PO SCH (08:37)
[2018-01-15] MEDS: Amiodarone 200 MG Tablet PO SCH ×2 (08:37→20:30)
[2018-01-15] MEDS: Docusate Sodium 100 MG Capsule PO SCH ×2 (08:37→20:30)
[2018-01-15] MEDS ORDERED: Mag Sulf 1 gm/100 ml Premix 100 ML IV.SIG ONE (11:00)
--- NOTE | 2018-01-15 12:06 | ECG ---
Date Performed: 01/14/2018 Time Performed: 13:23:40 PTAGE: 62 years EKG: Sinus rhythm Inferior infarct - age undetermined Abnormal ECG Since the PREVIOUS TRACING , no significant change noted PREVIOUS TRACING DOCTOR: Harvinder Rush Interpretating Date/Time 01/15/2018 12:02:34
[2018-01-15] MEDS: Glimepiride 4 MG Tablet PO SCH (12:16)
--- NOTE | 2018-01-15 12:24 | P.PNCV ---
- Note Subjective/Hospital Course: 01/13 SURGICAL PROCEDURE 1. Urgent Off-pump Coronary Artery Bypass Grafting x 3 with Left Internal Mammary Artery (WATTERS) to Left Anterior Descending (LAD), reverse saphenous vein graft to obtuse Marginal branch of the left Circumflex artery, reverse saphenous vein graft to the distal right Coronary artery 2. Left leg Endoscopic Vein [place] 3. Intraoperative Vein Mapping. 01/14 Clinically and hemodynamically stable Extubated and tolerating Maintain chest tube to drainage Transfer to see PCU 01/15 minimal drainage from chest tube chest tube dc without difficulty family present at beside to translate gentle diuresis + 7 kg / lower ext edema social service consulted on ASA, plavix, statin add home glimepiride and metformin check hgb A1c Objective: Vital Signs - 24 hr 01/14/18 15:00 01/14/18 15:22 01/14/18 16:00 Temperature 99.1 F 99.1 F Pulse Rate 91 H 91 H 91 H Respiratory Rate 16 18 16 Blood Pressure 114/65 95/64 L Pulse Oximetry 95 95 01/14/18 19:00 01/14/18 19:16 01/14/18 20:00 Temperature 99.5 F Pulse Rate 90 79 Respiratory Rate 16 18 16 Blood Pressure 128/71 Pulse Oximetry 95 91 L 94 L 01/14/18 22:00 01/14/18 23:00 01/14/18 23:20 Temperature 99.5 F Pulse Rate 98 H 92 H 94 H Respiratory Rate 16 Blood Pressure 123/72 Pulse Oximetry 94 L 01/15/18 00:00 01/15/18 01:00 01/15/18 02:00 Temperature Pulse Rate 91 H 92 H 92 H Respiratory Rate 16 Blood Pressure Pulse Oximetry 01/15/18 03:00 01/15/18 03:29 01/15/18 04:00 Temperature 98.7 F Pulse Rate 94 H 93 H 92 H Respiratory Rate 16 16 Blood Pressure 136/67 Pulse Oximetry 95 01/15/18 05:00 01/15/18 06:00 01/15/18 07:00 Temperature Pulse Rate 90 91 H 92 H Respiratory Rate Blood Pressure Pulse Oximetry 01/15/18 08:00 01/15/18 08:21 01/15/18 09:00 Temperature 98.2 F Pulse Rate 93 H 90 Respiratory Rate 20 Blood Pressure 129/73 Pulse Oximetry 94 L 93 L GENERAL: awake and alert, family at beside to translate SKIN: Warm and dry. prevena dressing to chest , incision intact to left leg HEAD: Normocephalic. EYES: No scleral icterus. No injection or drainage. NECK: Supple, trachea midline. No JVD or lymphadenopathy. CARDIOVASCULAR: Regular rate and rhythm without murmurs, gallops, or rubs+ edema RESPIRATORY: Breath sounds equal bilaterally. No accessory muscle use. diminished in bases GASTROINTESTINAL: Abdomen soft, non-tender, nondistended. MUSCULOSKELETAL: No cyanosis, or edema. BACK: Nontender without obvious deformity. No CVA tenderness. Labs: Laboratory Results - last 12 hr 01/12/18 01/15/18 01/15/18 22:47 02:05 03:30 WBC 9.7 RBC 3.56 L Hgb 10.1 L Hct 30.1 L MCV 84.6 MCH 28.5 MCHC 33.6 RDW 14.1 Plt Count 181 MPV 9.2 Neut % (Auto) 57.3 Lymph % (Auto) 30.2 Smith % (Auto) 10.5 H Eos % (Auto) 1.6 Baso % (Auto) 0.4 Neut # (Auto) 5.6 Lymph # (Auto) 2.9 Smith # (Auto) 1.0 H Eos # (Auto) 0.2 Baso # (Auto) 0.0 WBC Differential . Differential Comment Auto diff final Sodium Potassium Chloride Carbon Dioxide Anion Gap BUN Creatinine Estimated GFR POC Glucose 148 H Random Glucose Calcium Magnesium MTS Gel Crossmatch See Detail 01/15/18 01/15/18 01/15/18 03:30 05:40 10:03 WBC RBC Hgb Hct MCV MCH MCHC RDW Plt Count MPV Neut % (Auto) Lymph % (Auto) Smith % (Auto) Eos % (Auto) Baso % (Auto) Neut # (Auto) Lymph # (Auto) Smith # (Auto) Eos # (Auto) Baso # (Auto) WBC Differential Differential Comment Sodium 142 Potassium 4.1 Chloride 108 H Carbon Dioxide 26.9 Anion Gap 7 BUN 15 Creatinine 0.95 Estimated GFR 81 L POC Glucose 135 H 271 H Random Glucose 161 H D Calcium 8.1 L Magnesium 2.0 MTS Gel Crossmatch Result Diagrams: 01/15/18 03:30 01/15/18 03:30 Telemetry: NSR - Plan (3) Diabetes mellitus Plan: metformin, glimepiride, insulin sliding scale diabetic education check HGB A1c (3) Diabetes mellitus Qualifiers: Diabetes mellitus type: type 2
--- NOTE | 2018-01-15 13:59 | P.DCO ---
- Diagnosis (1) S/P CABG x 3 Status: Acute (2) Coronary artery disease involving hopi coronary artery Status: Acute (3) Unstable angina Status: Acute (4) Diabetes mellitus Status: Chronic - Home Health Nursing Order: Medical education, Signs/symptoms of disease process, Diabetic education , Wound care and dressing changes, Nursing assessment with vital signs Instructions: Heart and Vascular Surgery patients *Special attention to sternal dressing Mandatory frequency Assess and evaluation, 4 days in a row The next week 3X week 2 times a week for 4 weeks 1 time a week for 5 weeks Schedule Heart and Vascular patients for full 60 day certification period Initial visit Review Open Heart Surgery Discharge Instructions (Sternal precautions, Activity, Elastic hose, Incision care, Driving, Incentive spirometry, Smoking, [place], Work and other) Need Betadine to paint incision Medication reconciliation Importance of follow up care/ check on appointments Make calendar record temperature daily When to call [facility] nurse, review instructions, phone list Incentive Spirometry, demonstration Visit 1- Begin discharge instruction for patient family and/ or caregiver using teach back method- Signs and symptoms of infection Disease characteristics Medicines and side effects Foods and nutrition/ appetite Infection control/ hand washing/ hygiene Visit 2- Continue teaching Discharge instructions- include additional information on smoking cessation , sternal dressing (sternal vac) Visit 3- Continue teaching- Cough and deep breathing, incision monitoring. Choose my plate Visit 4- Continue teaching- Discuss limitations Discuss how they are feeling Discuss progress toward goals Remaining visits- continue teaching and monitoring For any questions please call : Monday 8am-5pm Heart & Vascular Surgery Office ( Dr. Mcpherson & Dr. Mujica), After Hours / Nights (5pm -8am) Weekends and Holidays Please call [facility] Cardiac Intermediate Care Unit (CIC) Charge Nurse PREVENA Single Use Negative Wound Therapy System Caregiver Instruction Sheet 1. A Prevena dressing system was applied to the chest incision during surgery , to promote wound healing. It works via a suction device (negative pressure wound therapy) to remove low to moderate levels of exudate (drainage) and infectious materials. We recommend that the device stay in place for up to seven days, from day of surgery. 2. Day of Surgery___01/13/18 Day of Removal ___/ 3. The dressing should only be removed by a health care analyst. Please arrange removal of device to coincide with Home Health visit and or with Nursing staff at Rehab 4. If skin reddening or irritation of skin occurs, or excessive drainage, please notify the Cardiovascular Surgeons office at [phone]. 5. Light showering is permissible; however the pump should be disconnected and placed in safe location, where it will not get wet. The dressing should not be exposed to direct spray or submerged in water. No bath tub / shower only. Ensure the end of the tubing attached to the dressing is facing down so that water does not enter the top of the tube. 6. To remove Prevena dressing: press purple button to turn off device / remove the suction. Then disconnect the tubing from the pump. The fixation strips should be stretched away from the skin and the dressing lifted at one corner and peeled back until it has been fully removed. 7. After removal, it is ok to shower daily using liquid dial soap and clean wash cloth, rinse and pat dry, and leave incision open to air dry. For any concerns regarding Prevena dressing, and or wounds, please contact Anna Brooks, patient navigator at [phone] or notify the Cardiovascular Surgeons office at [phone]. Incentive spirometry Q1 hr x 10, while awake, also use acapella device hourly whole awake Sternal Breast Bone Precautions: NO pushing or pulling, ( pt must use sternal pillow to support chest with all activities and with coughing ( takes up to 3 months breast bone to heal ) Daily incision care: ok to shower daily, no tub bath. Wash all incisions with liquid dial soap, clean wash cloth to each site, rinse and pat dry. Observe for any signs of infection, such as drainage which is dark yellow, [place], green or foul smelling. Immediately report to the surgeon any drainage from the chest incision, or legs, and for any abnormal drainage from the chest tube sites. Notify surgeon if any temp >101.5 degrees F. When specialty dressing removed/ or if you do not have one, continue to shower daily as above, then rinse and pat incision dry and paint with betadine daily x 5 days. Allow steri strips to fall off if you have any. Avoid lotions, creams, salves, oils, etc. for the first month Please see attached forms for additional instructions regarding post Open Heart specialty wound vacuum dressings. FREDERIC or Prevena , Dressing to be removed by Nursing staff on __01/20/18 F/U appointment: as per DC instructions: PCP in 2 weeks, CV surgeon 2 weeks, Human Resource Officer 3-4 weeks For any questions regarding incisions/ dressing / meds / post op care or above Symptoms, Monday 8am-5pm Heart & Vascular Surgery Office ( Dr. Mcpherson & Dr. Mujica), After Hours / Nights (5pm -8am) Weekends and Holidays Please call [facility] Cardiac Intermediate Care Unit (CIC) Charge Nurse - Case Management Consult Yes - Certification I have seen patient Humble Shaw on 01/15/18. My clinical findings support the need for the requested home health care services because: Deconditioned with increased weakness I certify that my clinical findings support that this patient is homebound because: Post-op weakness (4) Diabetes mellitus Qualifiers: Diabetes mellitus type: type 2
[2018-01-15] MEDS: Insulin Detemir Inj 1,000 UNIT/10 ML Vial SQ SCH (20:30)
[2018-01-15] MEDS ORDERED: Insulin Detemir Inj 1,000 UNIT/10 ML Vial SQ SCH (21:00)
[2018-01-15] MEDS: Temazepam 15 MG Capsule PO SCH (21:40)
[2018-01-16] MEDS: Insulin NovoLOG Aspart Correctional Sugar Inj SQ SCH ×5 (02:09→22:30)
--- NOTE | 2018-01-16 06:20 | XR ---
EXAM DATE: 01/16/2018 5:29 AM EST AGE/SEX: 62 years / Male INDICATIONS: Short of breath. CLINICAL DATA: This is the patient's subsequent encounter. Patient reports that signs and symptoms h ave been present for 4 - 6 days and indicates a pain score of 0/10. MEDICAL/SURGICAL HISTORY: Cardiovascular disease. CABG. COMPARISON: C, CHEST 1V SINGLE AP, 01/14/2018. . FINDINGS: A single AP portable semierect view of the chest was obtained and demonstrates interval removal of th e mediastinal chest tube and left-sided chest tube. There is no pneumothorax. The patient is again no idris to be status post median sternotomy. The heart size is at the upper limits of normal. The right i nternal jugular central venous line remains in place. There are no confluent infiltrates. The left co stophrenic angle remains mildly blunted. CONCLUSION: 1. Interval removal of mediastinal chest tube and left-sided chest tube with no pneumothorax. 2. Mid inspiratory study with small left effusion. Electronically signed by: Jasper White MD 01/16/2018 6:19 AM EST
[2018-01-16 06:28] LABS: Anion Gap 6 meq/L (5-15); Blood Urea Nitrogen 18 mg/dL (7-18); Calcium 8.1 mg/dL (8.5-10.1); Carbon Dioxide 28.6 meq/L (21.0-32.0); Chloride 107 meq/L (98-107); Glomerular Filtration Rate Greater Than 89 mL/min (>89); Glucose,Random 135 mg/dL (74-106); Potassium 4.1 meq/L (3.5-5.1); Sodium 142 meq/L (136-145)
[2018-01-16] MEDS: Insulin Detemir Inj 1,000 UNIT/10 ML Vial SQ SCH ×2 (08:27→21:18)
[2018-01-16] MEDS: Amiodarone 200 MG Tablet PO SCH (08:30)
[2018-01-16] MEDS: Senna/Docusate Sodium 8.6/50 MG Tablet PO SCH ×2 (09:24→21:18)
[2018-01-16] MEDS: Docusate Sodium 100 MG Capsule PO SCH ×2 (09:25→21:18)
[2018-01-16] MEDS: Multivitamin/Minerals Therapeutic Tablet PO SCH (09:25)
[2018-01-16] MEDS: Metoprolol Tartrate 50 MG Tablet PO SCH ×2 (09:25→21:18)
[2018-01-16] MEDS: Pantoprazole Sodium 20 MG DR Tablet PO SCH (09:26)
[2018-01-16] MEDS: Polyethylene Glycol 3350 17 GM Packet PO SCH (09:29)
--- NOTE | 2018-01-16 15:31 | P.PNCV ---
- Note Subjective/Hospital Course: 01/13 SURGICAL PROCEDURE 1. Urgent Off-pump Coronary Artery Bypass Grafting x 3 with Left Internal Mammary Artery (WATTERS) to Left Anterior Descending (LAD), reverse saphenous vein graft to obtuse Marginal branch of the left Circumflex artery, reverse saphenous vein graft to the distal right Coronary artery 2. Left leg Endoscopic Vein [place] 3. Intraoperative Vein Mapping. 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 Blood glucose monitor / insulin / supplies some nausea this am / amiodarone dc Objective: Vital Signs - 24 hr 01/15/18 16:00 01/15/18 17:00 01/15/18 18:00 Temperature 97.9 F Pulse Rate 94 H 95 H 99 H Respiratory Rate 20 Blood Pressure 128/72 Pulse Oximetry 94 L 01/15/18 19:00 01/15/18 19:42 01/15/18 20:00 Temperature 99.1 F Pulse Rate 94 H 97 H 110 H Respiratory Rate 18 20 Blood Pressure 105/61 Pulse Oximetry 98 91 L 01/15/18 21:00 01/15/18 22:00 01/15/18 22:24 Temperature Pulse Rate 100 H 98 H Respiratory Rate 18 Blood Pressure Pulse Oximetry 01/15/18 23:00 01/15/18 23:55 01/16/18 00:00 Temperature 98.8 F Pulse Rate 98 H 98 H 98 H Respiratory Rate 20 Blood Pressure 146/77 H Pulse Oximetry 94 L 01/16/18 01:00 01/16/18 02:00 01/16/18 03:00 Temperature Pulse Rate 96 H 104 H 86 Respiratory Rate Blood Pressure Pulse Oximetry 01/16/18 03:52 01/16/18 03:53 01/16/18 04:00 Temperature 98.7 F Pulse Rate 86 81 Respiratory Rate 20 18 Blood Pressure 137/74 Pulse Oximetry 93 L 01/16/18 05:00 01/16/18 05:49 01/16/18 07:42 Temperature Pulse Rate 91 H 80 84 Respiratory Rate 18 16 Blood Pressure Pulse Oximetry 95 01/16/18 08:00 01/16/18 12:00 Temperature 98.5 F 98.5 F Pulse Rate 84 74 Respiratory Rate 18 20 Blood Pressure 165/87 H 140/63 Pulse Oximetry 93 L 94 L GENERAL: A&O x 3 SKIN: Warm and dry. HEAD: Normocephalic. EYES: No scleral icterus. No injection or drainage. NECK: Supple, trachea midline. No JVD or lymphadenopathy. CARDIOVASCULAR: Regular rate and rhythm without murmurs, gallops, or rubs. RESPIRATORY: Breath sounds equal bilaterally. No accessory muscle use. GASTROINTESTINAL: Abdomen soft, non-tender, nondistended. MUSCULOSKELETAL: No cyanosis, mild edema. BACK: Nontender without obvious deformity. No CVA tenderness. Labs: Laboratory Results - last 12 hr 01/16/18 01/16/18 01/16/18 05:00 05:30 09:39 Sodium 142 Potassium 4.1 Chloride 107 Carbon Dioxide 28.6 Anion Gap 6 BUN 18 Creatinine 0.78 Estimated GFR Greater than 89 POC Glucose 123 H 137 H Random Glucose 135 H Calcium 8.1 L 01/16/18 11:47 Sodium Potassium Chloride Carbon Dioxide Anion Gap BUN Creatinine Estimated GFR POC Glucose 190 H Random Glucose Calcium Result Diagrams: 01/15/18 03:30 01/16/18 05:30 Telemetry: NSR - Plan (4) Diabetes mellitus Plan: metformin, glimepiride, insulin sliding scale diabetic education check HGB A1c 14 (4) Diabetes mellitus Qualifiers: Diabetes mellitus type: type 2
[2018-01-16] MEDS: Glimepiride 4 MG Tablet PO SCH (17:34)
[2018-01-16] MEDS: Temazepam 15 MG Capsule PO SCH (21:18)
[2018-01-17] MEDS: Insulin Detemir Inj 1,000 UNIT/10 ML Vial SQ SCH ×2 (09:06→21:58)
[2018-01-17] MEDS: Docusate Sodium 100 MG Capsule PO SCH ×2 (09:08→21:58)
[2018-01-17] MEDS: Metoprolol Tartrate 50 MG Tablet PO SCH ×2 (09:08→21:57)
[2018-01-17] MEDS: Glimepiride 4 MG Tablet PO SCH (09:08)
[2018-01-17] MEDS: Pantoprazole Sodium 20 MG DR Tablet PO SCH (09:08)
[2018-01-17] MEDS: Multivitamin/Minerals Therapeutic Tablet PO SCH (09:09)
[2018-01-17] MEDS: Insulin NovoLOG Aspart Correctional Sugar Inj SQ SCH ×4 (09:09→21:57)
[2018-01-17] MEDS: Senna/Docusate Sodium 8.6/50 MG Tablet PO SCH ×2 (09:09→21:57)
[2018-01-17 12:08] LABS: Alanine Aminotransferase 28 U/L (12-78)
[2018-01-17 12:10] LABS: Alkaline Phosphatase 71 U/L (45-117); Total Protein 7.3 g/dL (6.4-8.2)
[2018-01-17 12:13] LABS: Albumin 2.7 g/dL (3.4-5.0); Amylase 63 U/L (25-115); Anion Gap 7 meq/L (5-15); Aspartate Aminotransferase 31 U/L (15-37); Blood Urea Nitrogen 15 mg/dL (7-18); Calcium 8.6 mg/dL (8.5-10.1); Chloride 103 meq/L (98-107); Glomerular Filtration Rate Greater Than 89 mL/min (>89); Glucose,Random 225 mg/dL (74-106); Lipase 181 U/L (73-393); Potassium 4.4 meq/L (3.5-5.1); Sodium 136 meq/L (136-145)
--- NOTE | 2018-01-17 12:37 | XR ---
EXAM DATE: 01/17/2018 12:33 PM EST AGE/SEX: 62 years / Male INDICATIONS: Abdominal pain CLINICAL DATA: This is the patient's initial encounter. Patient reports that signs and symptoms have been present for 2 days and indicates a pain score of 3/10. MEDICAL/SURGICAL HISTORY: Cardiovascular disease. CABG. COMPARISON: No prior exams available for comparison. FINDINGS: Lung bases are clear. Scattered stool is seen throughout the colon. There is no free air or obstruction. The portion of the bony skeleton visualized is unremarkable. CONCLUSION: Negative. I do not see etiology for patient's abdominal pain. Electronically signed by: Aren De León MD 01/17/2018 12:36 PM EST
--- NOTE | 2018-01-17 15:07 | P.PNCV ---
- Note Subjective/Hospital Course: 01/13 SURGICAL PROCEDURE 1. Urgent Off-pump Coronary Artery Bypass Grafting x 3 with Left Internal Mammary Artery (WATTERS) to Left Anterior Descending (LAD), reverse saphenous vein graft to obtuse Marginal branch of the left Circumflex artery, reverse saphenous vein graft to the distal right Coronary artery 2. Left leg Endoscopic Vein [place] 3. Intraoperative Vein Mapping. 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 glucose monitor / insulin / supplies some nausea this am / amiodarone dc 01/17 still has some nausea, CMP , amylase and lipase unremarkable some left upper abdominal discomfort, + BM ABD KUB unremarkable pt family now requesting to go to rehab Objective: Vital Signs - 24 hr 01/16/18 16:00 01/16/18 17:00 01/16/18 18:00 Temperature 98.3 F Pulse Rate 90 100 H 96 H Respiratory Rate 20 Blood Pressure 125/75 Pulse Oximetry 95 01/16/18 19:00 01/16/18 20:00 01/16/18 21:00 Temperature 99.2 F Pulse Rate 97 H 99 H 90 Respiratory Rate 18 Blood Pressure 138/81 Pulse Oximetry 95 93 L 01/16/18 22:00 01/16/18 23:00 01/16/18 23:57 Temperature 98.9 F Pulse Rate 95 H 93 H 92 H Respiratory Rate 18 Blood Pressure 145/87 H Pulse Oximetry 94 L 01/17/18 00:00 01/17/18 01:00 01/17/18 02:00 Temperature Pulse Rate 91 H 83 92 H Respiratory Rate Blood Pressure Pulse Oximetry 01/17/18 03:00 01/17/18 03:37 01/17/18 04:00 Temperature 98.6 F Pulse Rate 80 81 91 H Respiratory Rate 18 Blood Pressure 119/75 Pulse Oximetry 96 01/17/18 05:00 01/17/18 06:00 01/17/18 06:05 Temperature Pulse Rate 90 89 Respiratory Rate 18 Blood Pressure Pulse Oximetry 01/17/18 07:00 01/17/18 07:40 01/17/18 08:37 Temperature 98.6 F Pulse Rate 90 90 Respiratory Rate 18 Blood Pressure 124/80 Pulse Oximetry 95 93 L 01/17/18 11:19 Temperature 98.8 F Pulse Rate 85 Respiratory Rate 18 Blood Pressure 143/81 H Pulse Oximetry 95 GENERAL: A&O x 3 SKIN: Warm and dry. prevena dressing to chest HEAD: Normocephalic. EYES: No scleral icterus. No injection or drainage. NECK: Supple, trachea midline. No JVD or lymphadenopathy. CARDIOVASCULAR: Regular rate and rhythm without murmurs, gallops, or rubs. RESPIRATORY: Breath sounds equal bilaterally. No accessory muscle use. GASTROINTESTINAL: Abdomen soft, non-tender, nondistended. MUSCULOSKELETAL: No cyanosis, or edema. BACK: Nontender without obvious deformity. No CVA tenderness. Labs: Laboratory Results - last 12 hr 01/17/18 01/17/18 01/17/18 07:12 11:16 11:29 Sodium 136 Potassium 4.4 Chloride 103 Carbon Dioxide 26.0 Anion Gap 7 BUN 15 Creatinine 0.76 Estimated GFR Greater than 89 POC Glucose 124 H 229 H Random Glucose 225 H Calcium 8.6 Total Bilirubin 0.4 AST 31 ALT 28 Alkaline Phosphatase 71 Total Protein 7.3 D Albumin 2.7 L Amylase 63 Lipase 181 01/17/18 11:29 Sodium Potassium Chloride Carbon Dioxide Anion Gap BUN Creatinine Estimated GFR POC Glucose Random Glucose Calcium Total Bilirubin AST ALT Alkaline Phosphatase Total Protein Albumin Amylase Lipase Cancelled Result Diagrams: 01/15/18 03:30 01/17/18 11:29 - Plan (4) Diabetes mellitus Plan: metformin, glimepiride, insulin sliding scale diabetic education check HGB A1c 14 (4) Diabetes mellitus Qualifiers: Diabetes mellitus type: type 2
[2018-01-17] MEDS: Polyethylene Glycol 3350 17 GM Packet PO SCH (19:58)
[2018-01-17] MEDS: Temazepam 15 MG Capsule PO SCH (22:00)
[2018-01-18] MEDS: Glimepiride 4 MG Tablet PO SCH (08:48)
[2018-01-18] MEDS: Polyethylene Glycol 3350 17 GM Packet PO SCH (08:48)
[2018-01-18] MEDS: Multivitamin/Minerals Therapeutic Tablet PO SCH (08:49)
[2018-01-18] MEDS: Docusate Sodium 100 MG Capsule PO SCH ×2 (08:49→22:58)
[2018-01-18] MEDS: Pantoprazole Sodium 20 MG DR Tablet PO SCH (08:49)
[2018-01-18] MEDS: Metoprolol Tartrate 50 MG Tablet PO SCH ×2 (08:49→22:58)
[2018-01-18] MEDS: Insulin Detemir Inj 1,000 UNIT/10 ML Vial SQ SCH ×2 (08:49→22:58)
[2018-01-18] MEDS: Senna/Docusate Sodium 8.6/50 MG Tablet PO SCH ×2 (08:49→22:58)
[2018-01-18] MEDS: Insulin NovoLOG Aspart Correctional Sugar Inj SQ SCH ×4 (08:56→22:58)
[2018-01-18] MEDS: Gabapentin 100 MG Capsule PO SCH (12:08)
--- NOTE | 2018-01-18 12:20 | P.PNCV ---
- Note Subjective/Hospital Course: 01/13 SURGICAL PROCEDURE 1. Urgent Off-pump Coronary Artery Bypass Grafting x 3 with Left Internal Mammary Artery (WATTERS) to Left Anterior Descending (LAD), reverse saphenous vein graft to obtuse Marginal branch of the left Circumflex artery, reverse saphenous vein graft to the distal right Coronary artery 2. Left leg Endoscopic Vein [place] 3. Intraoperative Vein Mapping. 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 Blood glucose monitor / insulin / supplies some nausea this am / amiodarone dc 01/17 still has some nausea, CMP , amylase and lipase unremarkable some left upper abdominal discomfort, + BM ABD KUB unremarkable pt family now requesting to go to rehab 01/18 pt still c/o of some nausea / despite dc amiodarone and norco BGM improved, no appetite discussed in length with family, he has no medical benefits for SNF will consult Hospitalist for assistance/ pt very poor historian/ in addition to language barrier pt needs tremendous amount of encouragement, needs to be OOB ambulate, pulm toileting family has been given direct education regarding his diabetes, diet and activity Objective: Vital Signs - 24 hr 01/17/18 13:00 01/17/18 14:00 01/17/18 15:00 Temperature Pulse Rate 78 80 82 Respiratory Rate Blood Pressure Pulse Oximetry 01/17/18 16:00 01/17/18 17:00 01/17/18 18:00 Temperature 97.6 F Pulse Rate 82 92 H 80 Respiratory Rate 18 Blood Pressure 127/70 Pulse Oximetry 95 01/17/18 19:00 01/17/18 20:00 01/17/18 21:00 Temperature 98.9 F Pulse Rate 94 H 90 89 Respiratory Rate 18 Blood Pressure 124/72 Pulse Oximetry 94 L 01/17/18 22:00 01/17/18 23:00 01/17/18 23:37 Temperature 98.7 F Pulse Rate 87 87 87 Respiratory Rate 18 Blood Pressure 127/86 Pulse Oximetry 94 L 01/18/18 00:00 01/18/18 01:00 01/18/18 02:00 Temperature Pulse Rate 85 85 85 Respiratory Rate Blood Pressure Pulse Oximetry 01/18/18 03:00 01/18/18 04:00 01/18/18 05:00 Temperature 98.7 F Pulse Rate 93 H 94 H 88 Respiratory Rate 18 Blood Pressure 153/89 H Pulse Oximetry 97 01/18/18 05:38 01/18/18 06:00 01/18/18 07:00 Temperature Pulse Rate 88 89 Respiratory Rate 18 Blood Pressure Pulse Oximetry 01/18/18 08:00 01/18/18 09:00 01/18/18 10:00 Temperature 98.2 F Pulse Rate 88 88 82 Respiratory Rate 14 Blood Pressure 146/80 H Pulse Oximetry 96 01/18/18 11:00 Temperature Pulse Rate 82 Respiratory Rate Blood Pressure Pulse Oximetry GENERAL: A&O x 3 SKIN: Warm and dry. prevena dressing to chest , incision intact to left leg HEAD: Normocephalic. EYES: No scleral icterus. No injection or drainage. NECK: Supple, trachea midline. No JVD or lymphadenopathy. CARDIOVASCULAR: Regular rate and rhythm without murmurs, gallops, or rubs. RESPIRATORY: Breath sounds equal bilaterally. No accessory muscle use. GASTROINTESTINAL: Abdomen soft, mild tenderness left upper quadrant upon palpation nondistended, + BS , +BM MUSCULOSKELETAL: No cyanosis, or edema. BACK: Nontender without obvious deformity. No CVA tenderness. Labs: Laboratory Results - last 12 hr 01/18/18 01/18/18 08:44 11:20 POC Glucose 165 H 192 H Result Diagrams: 01/15/18 03:30 01/17/18 11:29 Telemetry: NSR - Plan (1) S/P CABG x 3 Plan: ASA, plavix BB , statin OOB ambulate add norvasc for HTN (4) Diabetes mellitus Plan: metformin, glimepiride, insulin sliding scale diabetic education check HGB A1c 14 BGM improving (4) Diabetes mellitus Qualifiers: Diabetes mellitus type: type 2
[2018-01-18] MEDS ORDERED: Diatrizoate Meglum/Diatrizoate Sod Liq 9 ML UDC PO ONE (15:32)
--- NOTE | 2018-01-18 15:41 | P.CONIM ---
History of Present Illness Consult date: 01/18/18 Reason for Consult: Nausea and vomiting Primary Care Provider: No Primary Care Physician Chief Complaint: Chest pain History of Present Illness: The patient is a 62-year-old male with a past medical history of CAD and diabetes who is status post CABG and currently having problems with nausea and vomiting, as well as hyperglycemia. Patient had a catheterization which revealed multivessel coronary disease and arrangements were made to bring the patient in for CABG. The patient is currently postop day 5 and is still having chest wall pain. He denies any shortness of breath. He is working with physical therapy. He is using his incentive spirometer. He has been having episodes of nausea and vomiting. He has not vomited today. He does endorse some associated abdominal pain. He did have a bowel movement yesterday. He says at home his blood sugars are poorly controlled. He is concerned about going home from the hospital because he says he thinks he will have a lot of issues at home. He is [employer]iffany speaking and the bench assembler service was used over phone. Discussed with nursing and cardiothoracic surgery. Review of Systems All other systems reviewed negative except as [facility] - History History Provided By: Patient, Family Member, Medical Record - Medical History Medical History: Medical History (Last Updated 01/18/18 @ 15:37 by Jasper Ruiz DO) Asthma Coronary artery disease Diabetes High cholesterol - Surgical History Surgical History: Surgical History (Last Reviewed 01/18/18 @ 15:37 by Jasper Ruiz DO) Hx of cardiac cath - Family History Family History: Family History (Last Reviewed 01/18/18 @ 15:37 by Jasper Ruiz DO) Brother Family history of diabetes mellitus - Tobacco History Second Hand Smoke Exposure: No Tobacco Use In Past 30 Days: No Smoking Status: Never smoker - Alcohol History How Often Do You Have a Drink Containing Alcohol: Never - Travel History History of Recent Travel: No Recent Travel in the [place] Within the Last 8 Weeks: No Recent Travel Out of the Country Within the Last 8 Weeks: No Medications and Allergies Active Medications: Active Medications Acetaminophen (Tylenol) 650 mg PO Q6H PRN PRN Reason: PAIN 1-10 AND/OR FEVER >101F Al Hydroxide/Mg Hydroxide (Milk Of Magnesia Liq) 30 ml PO Q12H PRN PRN Reason: Mild Constipation Last Admin: 01/16/18 21:19 Dose: 30 ml Albuterol (Duoneb Neb (Prn)) 1 ampul NEB Q2HR NEB PRN PRN Reason: WHEEZING Aspirin (Aspirin Chew) 81 mg PO DAILY [facility] Last Admin: 01/18/18 08:49 Dose: 81 mg Atorvastatin Calcium (Lipitor) 40 mg PO DAILY [facility] Last Admin: 01/18/18 08:49 Dose: 40 mg Bisacodyl (Dulcolax Supp) 10 mg RECTAL DAILY PRN PRN Reason: SEVERE CONSITIPATION Clopidogrel Bisulfate (Plavix) 75 mg PO DAILY [facility] Last Admin: 01/18/18 08:49 Dose: 75 mg Dextrose (D50w Vial) 50 ml IV.PUSH UNSCH PRN PRN Reason: PER HYPOGLYCEMIA PROTOCOL Diatrizoate Meglum/Diatrizoate Sod ( Gastroview Liq) 18 ml PO ONCE ONE; Protocol Stop: 01/18/18 15:33 Docusate Sodium (Colace) 100 mg PO BID [facility] Last Admin: 01/18/18 08:49 Dose: 100 mg Gabapentin (Neurontin) 100 mg PO DAILY [facility] Last Admin: 01/18/18 12:08 Dose: 100 mg Glimepiride (Amaryl) 4 mg PO DAILY [facility] Last Admin: 01/18/18 08:48 Dose: 4 mg Glucagon (Glucagon Inj) 1 mg OTHER PRN PRN PRN Reason: for Hypoglycemia Protocol Sodium Chloride (Ns Inj) 500 mls @ 30 mls/hr IV.SIG .Q10H [facility] Last Admin: 01/15/18 19:22 Dose: Not Given Insulin Aspart (Novolog Insulin Correctional Sugar Inj) 0 unit SQ ACHS CORRECT SUGARS [facility]; Protocol Last Admin: 01/18/18 12:09 Dose: 2 unit Insulin Detemir (Levemir Inj) 10 unit SQ BID [facility] Last Admin: 01/18/18 08:49 Dose: 10 unit Lactulose (Lactulose Liq) 30 ml PO DAILY PRN PRN Reason: SEVERE CONSITIPATION [facility] Admin: 01/18/18 08:48 Dose: 1,000 mg Metoprolol Tartrate (Lopressor) 50 mg PO BID [facility] Last Admin: 01/18/18 08:49 Dose: 50 mg Miscellaneous (Pill Splitter) 1 each OTHER UNSCH PRN PRN Reason: SEE LABEL COMMENTS Multivitamins/Minerals (Theragran-M) 1 tab PO DAILY [facility] Last Admin: 01/18/18 08:49 Dose: 1 tab Ondansetron HCl (Zofran Inj) 4 mg IV.PUSH Q6H PRN PRN Reason: NAUSEA OR VOMITING Last Admin: 01/18/18 09:35 Dose: 4 mg Pantoprazole Sodium (Protonix) 20 mg PO DAILY [facility] Last Admin: 01/18/18 08:49 Dose: 20 mg Pantoprazole Sodium (Protonix) 40 mg PO DAILY@06 [facility] Last Admin: 01/18/18 05:38 Dose: 40 mg Polyethylene Glycol (Miralax) 17 gm PO DAILY [facility] Last Admin: 01/18/18 08:48 Dose: 17 gm Senna/Docusate Sodium (Pearl-Colace) 1 tab PO BID [facility] Last Admin: 01/18/18 08:49 Dose: 1 tab Sennosides (Senokot) 17.2 mg PO Q12H PRN PRN Reason: Moderate Constipation Sennosides (Senokot) 8.6 mg PO HS [facility] Last Admin: 01/17/18 21:58 Dose: Not Given Sodium Biphosphate/Sodium Phosphate (Fleets Enema (Adult)) 118 ml RECTAL UNSCH PRN PRN Reason: SEE LABEL COMMENTS Sodium Chloride (Ns Flush) 2 ml IV.FLUSH BID [facility] Last Admin: 01/18/18 08:49 Dose: 2 ml Sodium Chloride (Ns Flush) 2 ml IV.FLUSH PRN PRN PRN Reason: FLUSH AFTER USING IV ACCESS Last Admin: 01/15/18 05:34 Dose: 2 ml Temazepam (Restoril) 15 mg PO [facility] Last Admin: 01/17/18 22:00 Dose: 15 mg Tramadol HCl (Ultram) 50 mg PO Q6H PRN PRN Reason: Acute Pain Last Admin: 01/18/18 12:08 Dose: 50 mg Allergies Allergy/AdvReac Type Severity Reaction Status Date / Time No Known Allergies Allergy Unverified 01/12/18 14:45 Home Medications Medication Instructions Recorded Confirmed Type atorvastatin 20 mg PO DAILY 01/15/18 01/15/18 History gabapentin [Neurontin] 100 mg PO DAILY 01/15/18 01/15/18 History glimepiride 4 mg PO QAM 01/15/18 01/15/18 History metformin 1,000 mg PO DAILY 01/15/18 01/15/18 History metoprolol tartrate 50 mg PO BID 01/15/18 01/15/18 History nitroglycerin 0.4 mg SUBLINGUAL Q5-15M PRN 01/15/18 01/15/18 History omeprazole 20 mg PO DAILY 01/15/18 01/15/18 History Exam Vital signs: Vital Signs 01/17/18 16:00 01/17/18 17:00 01/17/18 18:00 Temperature 97.6 F Pulse Rate 82 92 H 80 Respiratory Rate 18 Blood Pressure 127/70 Pulse Oximetry 95 01/17/18 19:00 01/17/18 20:00 01/17/18 21:00 Temperature 98.9 F Pulse Rate 94 H 90 89 Respiratory Rate 18 Blood Pressure 124/72 Pulse Oximetry 94 L 01/17/18 22:00 01/17/18 23:00 01/17/18 23:37 Temperature 98.7 F Pulse Rate 87 87 87 Respiratory Rate 18 Blood Pressure 127/86 Pulse Oximetry 94 L 01/18/18 00:00 01/18/18 01:00 01/18/18 02:00 Temperature Pulse Rate 85 85 85 Respiratory Rate Blood Pressure Pulse Oximetry 01/18/18 03:00 01/18/18 04:00 01/18/18 05:00 Temperature 98.7 F Pulse Rate 93 H 94 H 88 Respiratory Rate 18 Blood Pressure 153/89 H Pulse Oximetry 97 01/18/18 05:38 01/18/18 06:00 01/18/18 07:00 Temperature Pulse Rate 88 89 Respiratory Rate 18 Blood Pressure Pulse Oximetry 01/18/18 08:00 01/18/18 09:00 01/18/18 10:00 Temperature 98.2 F Pulse Rate 88 88 82 Respiratory Rate 14 Blood Pressure 146/80 H Pulse Oximetry 96 01/18/18 11:00 01/18/18 12:00 01/18/18 13:00 Temperature 99.2 F Pulse Rate 82 73 72 Respiratory Rate 16 Blood Pressure 119/71 Pulse Oximetry 97 01/18/18 14:00 01/18/18 15:00 Temperature Pulse Rate 74 78 Respiratory Rate Blood Pressure Pulse Oximetry Intake & Output 01/17/18 01/18/18 01/18/18 18:59 06:59 18:59 Intake Total 800 / 800 480 / 480 Output Total 500 / 500 600 / 600 Balance 300 / 300 -120 / -120 Weight 94.5 kg Intake: Oral 800 / 800 480 / 480 Output: Urine 500 / 500 600 / 600 Other: # Voids 3 Date of Last Bowel Movement 01/16/18 01/18/18 Narrative: GENERAL: No distress. SKIN: Warm and dry. HEAD: Normocephalic, atraumatic. EYES: No scleral icterus. No injection or drainage. NECK: Supple, trachea midline. No JVD or lymphadenopathy. CARDIOVASCULAR: Regular rate and rhythm without murmurs, gallops, or rubs. RESPIRATORY: Breath sounds equal bilaterally. No accessory muscle use. GASTROINTESTINAL: Abdomen soft, mild distention. Nontender. MUSCULOSKELETAL: No cyanosis, or edema. BACK: Nontender without obvious deformity. No CVA tenderness. NEURO: No gross deficits. Results - Labs CBC & Chem 7: 01/15/18 03:30 01/17/18 11:29 Labs: Laboratory Results - last 24 hr 01/17/18 01/17/18 01/18/18 17:31 21:56 08:44 POC Glucose 236 H 262 H 165 H 01/18/18 11:20 POC Glucose 192 H Assessment and Plan - Plan CAD/Chest pain S/p CABG. -management per CTS. -rehab efforts. -incentive spirometry. -telemetry. N/V Unsure of etiology. Possibly s/t constipation or gastroparesis. KUB and LFTs unremarkable. -check a CT abdomen. -antiemetics as needed. -repeat LFTs. -continue PPI. -consider gastric emptying study if work-up negative and pt remains symptomatic. -bowel regimen. DM Relatively well controlled at this time. -continue insulin sliding scale and Levemir. Anemia S/t surgery. -follow CBC as needed. PPx: Per surgery
[2018-01-18 16:06] VITALS: RESP 16
[2018-01-18] MEDS: Temazepam 15 MG Capsule PO SCH (22:58)
[2018-01-19 02:19] VITALS: O2SAT 95
[2018-01-19 05:04] LABS: Alanine Aminotransferase 22 U/L (12-78); Albumin 2.5 g/dL (3.4-5.0); Anion Gap 8 meq/L (5-15); Aspartate Aminotransferase 18 U/L (15-37); Blood Urea Nitrogen 14 mg/dL (7-18); Calcium 8.7 mg/dL (8.5-10.1); Carbon Dioxide 30.3 meq/L (21.0-32.0); Chloride 102 meq/L (98-107); Glomerular Filtration Rate Greater Than 89 mL/min (>89); Glucose,Random 148 mg/dL (74-106); Lipase 234 U/L (73-393); Sodium 140 meq/L (136-145)
[2018-01-19 05:07] LABS: Alkaline Phosphatase 74 U/L (45-117); Total Protein 6.8 g/dL (6.4-8.2)
[2018-01-19 08:28] VITALS: BP 146/86; TEMP 98.3
--- NOTE | 2018-01-19 09:04 | P.PNIM ---
Subjective Interval history: The patient is ambulating well and tolerating a diet. He does still have some pain around his chest. His family was at the bedside. Discussed with nursing. Physical Exam Vital signs: Vital Signs 01/18/18 10:00 01/18/18 11:00 01/18/18 12:00 Temperature 99.2 F Pulse Rate 82 82 73 Respiratory Rate 16 Blood Pressure 119/71 Pulse Oximetry 97 01/18/18 13:00 01/18/18 14:00 01/18/18 15:00 Temperature Pulse Rate 72 74 78 Respiratory Rate Blood Pressure Pulse Oximetry 01/18/18 16:00 01/18/18 17:00 01/18/18 17:53 Temperature 98.6 F Pulse Rate 84 86 Respiratory Rate 16 Blood Pressure 109/66 Pulse Oximetry 93 L 93 L 01/18/18 18:00 01/18/18 19:00 01/18/18 20:00 Temperature 98.9 F Pulse Rate 88 89 86 Respiratory Rate 16 Blood Pressure 161/89 H Pulse Oximetry 97 01/18/18 21:00 01/18/18 22:00 01/18/18 23:00 Temperature Pulse Rate 96 H 86 89 Respiratory Rate Blood Pressure Pulse Oximetry 01/19/18 00:00 01/19/18 01:00 01/19/18 02:00 Temperature 99 F Pulse Rate 88 86 88 Respiratory Rate 16 Blood Pressure 144/76 H Pulse Oximetry 95 01/19/18 03:00 01/19/18 04:00 01/19/18 05:00 Temperature 98.5 F Pulse Rate 90 78 78 Respiratory Rate 16 Blood Pressure 156/87 H Pulse Oximetry 95 01/19/18 06:00 01/19/18 07:24 01/19/18 08:26 Temperature 98.3 F Pulse Rate 81 84 88 Respiratory Rate 16 Blood Pressure 146/86 H Pulse Oximetry Intake & Output 01/18/18 01/19/18 01/19/18 18:59 06:59 18:59 Intake Total 1892 / 1892 400 / 400 Output Total 800 / 800 650 / 650 Balance 1092 / 1092 -250 / -250 Weight 93.5 kg Intake: Oral 189 / 189 400 / 400 Output: Urine 800 / 800 650 / 650 Other: # Voids 3 2 Date of Last Bowel Movement 11/15/18 11/16/18 # Bowel Movements 1 Narrative: GENERAL: No distress. SKIN: Warm and dry. HEAD: Normocephalic, atraumatic. EYES: No scleral icterus. No injection or drainage. NECK: Supple, trachea midline. No JVD or lymphadenopathy. CARDIOVASCULAR: Regular rate and rhythm without murmurs, gallops, or rubs. RESPIRATORY: Breath sounds equal bilaterally. No accessory muscle use. GASTROINTESTINAL: Abdomen soft, mild distention. Nontender. MUSCULOSKELETAL: No cyanosis, or edema. BACK: Nontender without obvious deformity. No CVA tenderness. NEURO: No gross deficits. - Urinary Catheter Management Indwelling Temp Sensing Catheter Cath placed during this visit: yes, but has since been removed by the nurse Reason for continuing: Hourly intake/output Insertion date: 01/13/18 Insertion time: 08:00 Removal date: 01/14/18 Removal time: 06:15 Results - Labs CBC & Chem 7: 01/15/18 03:30 01/19/18 04:04 Laboratory Results - last 24 hr 01/18/18 01/18/18 01/18/18 11:20 16:26 19:51 Sodium Potassium Chloride Carbon Dioxide Anion Gap BUN Creatinine Estimated GFR POC Glucose 192 H 234 H 209 H Random Glucose Calcium Total Bilirubin AST ALT Alkaline Phosphatase Total Protein Albumin Lipase 01/19/18 01/19/18 04:04 07:57 Sodium 140 Potassium 4.0 Chloride 102 Carbon Dioxide 30.3 Anion Gap 8 BUN 14 Creatinine 0.73 Estimated GFR Greater than 89 POC Glucose 133 H Random Glucose 148 H Calcium 8.7 Total Bilirubin 0.2 AST 18 ALT 22 Alkaline Phosphatase 74 Total Protein 6.8 Albumin 2.5 L Lipase 234 Assessment and Plan - Plan CAD/Chest pain S/p CABG. -management per CTS. -rehab efforts. -incentive spirometry. -telemetry. N/V Unsure of etiology. He is having bowel movements. Possibly s/t gastroparesis. KUB and LFTs unremarkable. Seems resolved. -d/c CT abdomen as symptoms are improved. -antiemetics as needed. -continue PPI. -bowel regimen. DM Relatively well controlled at this time. -continue insulin sliding scale and Levemir. Anemia S/t surgery. -follow CBC as needed. PPx: Per surgery
[2018-01-19] MEDS: Insulin NovoLOG Aspart Correctional Sugar Inj SQ SCH (10:19)
[2018-01-19] MEDS: Metoprolol Tartrate 50 MG Tablet PO SCH (10:38)
[2018-01-19] MEDS: Docusate Sodium 100 MG Capsule PO SCH (10:38)
[2018-01-19] MEDS: Senna/Docusate Sodium 8.6/50 MG Tablet PO SCH (10:38)
[2018-01-19] MEDS: Gabapentin 100 MG Capsule PO SCH (10:38)
[2018-01-19] MEDS: Multivitamin/Minerals Therapeutic Tablet PO SCH (10:38)
[2018-01-19] MEDS: Glimepiride 4 MG Tablet PO SCH (10:42)
[2018-01-19] MEDS: Insulin Detemir Inj 1,000 UNIT/10 ML Vial SQ SCH (10:42)
[2018-01-19] MEDS: Polyethylene Glycol 3350 17 GM Packet PO SCH (10:42)
[2018-01-19 11:32] VITALS: PULSE 84
--- NOTE | 2018-01-19 14:09 | P.DS ---
Date of admission: 01/12/18 14:15 Primary care physician: No Primary Care Physician Attending physician on discharge: Nerissa Mujica Anticipated date of discharge: 01/19/18 Brief History from admission: 62-year-old male with a medical history significant for diabetes mellitus, multivessel coronary artery disease diagnosed on recent cardiac catheterization done on 12/14/[address] Paul Rocha from [facility] at [facility] Was supposed to see Dr. Mcpherson on 01/16 for evaluation for CABG in his office. Patient presented to [facility] On 01/11 with chest pain and was diagnosed to have unstable angina. He was admitted to the ICU started on a nitroglycerin drip and full anticoagulation with therapeutic Lovenox. He was chest pain-free this morning. Patient was transferred to [facility] as he was scheduled to be evaluated by Dr. Mcpherson for CABG after transfer center spoke with Dr. Mcpherson. I was requested to admit and accepted the patient in transfer to the ICU on critical care medicine service. I evaluated the patient immediately on his arrival to the ICU. He was resting comfortably no acute distress at that time on a nitroglycerin drip at 20 mics per minute. He denied any chest pain or shortness of breath at the time. He denied any nausea or abdominal discomfort melena or rectal bleeding. He was evaluated by cardiology at [facility] this morning and was recommended transferred to [facility] for CABG. Home medications: Aspirin, Lipitor, metoprolol, glimepiride, metformin, sliding scale insulin, Lantus 10 units subcutaneously daily, gabapentin -to be clarified Patient update on day of discharge: pt improving daily no further nausea or headache on room air/ remains in NSR stable for dc home will need strict follow up of blood sugars and strict diet control DS: Diagnosis - Discharge Diagnosis (1) S/P CABG x 3 Status: Acute (2) Coronary artery disease involving [place] coronary artery Status: Acute (3) Unstable angina Status: Acute (4) Diabetes mellitus Status: Chronic (5) Moderate left ventricular systolic dysfunction Status: Acute DS: Medications - Discharge Medications Prescriptions: aspirin [Enteric Coated Aspirin] 81 mg PO DAILY #30 tab atorvastatin 40 mg PO DAILY #30 tab blood-glucose meter #1 each clopidogrel [Plavix] 75 mg PO DAILY #30 tab docusate sodium [DOK] 100 mg PO BID #30 cap insulin aspart U-100 [Novolog U-100 Insulin aspart] See Protocol SUBCUT ACHS CORRECT SUGARS #1 ml insulin syringe-needle U-100 [BD Insulin Syringe] #100 each lancets-blood glucose strips #200 each aaiqgsdq-jhzi-SR-calcium-mins [Thera M Plus (ferrous fumarat)] 1 tab PO DAILY # 30 tab tramadol [Ultram] 50 mg PO Q6H PRN #40 tab PRN Reason: Acute Pain DS: Summary Hospital Course: 01/13 SURGICAL PROCEDURE 1. Urgent Off-pump Coronary Artery Bypass Grafting x 3 with Left Internal Mammary Artery (WATTERS) to Left Anterior Descending (LAD), reverse saphenous vein graft to obtuse Marginal branch of the left Circumflex artery, reverse saphenous vein graft to the distal right Coronary artery 2. Left leg Endoscopic Vein [place] 3. Intraoperative Vein Mapping. 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 Blood glucose monitor / insulin / supplies some nausea this am / amiodarone dc 01/17 still has some nausea, CMP , amylase and lipase unremarkable some left upper abdominal discomfort, + BM ABD KUB unremarkable pt family now requesting to go to rehab 01/18 pt still c/o of some nausea / despite dc amiodarone and norco BGM improved, no appetite discussed in length with family, he has no medical benefits for SNF will consult Hospitalist for assistance/ pt very poor historian/ in addition to language barrier pt needs tremendous amount of encouragement, needs to be OOB ambulate, pulm toileting family has been given direct education regarding his diabetes, diet and activity 01/19 no further nausea will dc home today - Time Spent with Patient Total time spent providing and/or coordinating discharge services: Greater than 30 minutes Exam Vital signs: Vital Signs 01/18/18 15:00 01/18/18 16:00 01/18/18 17:00 Temperature 98.6 F Pulse Rate 78 84 86 Respiratory Rate 16 Blood Pressure 109/66 Pulse Oximetry 93 L 01/18/18 17:53 01/18/18 18:00 01/18/18 19:00 Temperature Pulse Rate 88 89 Respiratory Rate Blood Pressure Pulse Oximetry 93 L 01/18/18 20:00 01/18/18 21:00 01/18/18 22:00 Temperature 98.9 F Pulse Rate 86 96 H 86 Respiratory Rate 16 Blood Pressure 161/89 H Pulse Oximetry 97 01/18/18 23:00 01/19/18 00:00 01/19/18 01:00 Temperature 99 F Pulse Rate 89 88 86 Respiratory Rate 16 Blood Pressure 144/76 H Pulse Oximetry 95 01/19/18 02:00 01/19/18 03:00 01/19/18 04:00 Temperature 98.5 F Pulse Rate 88 90 78 Respiratory Rate 16 Blood Pressure 156/87 H Pulse Oximetry 95 01/19/18 05:00 01/19/18 06:00 01/19/18 07:24 Temperature Pulse Rate 78 81 84 Respiratory Rate Blood Pressure Pulse Oximetry 01/19/18 08:26 01/19/18 11:00 Temperature 98.3 F Pulse Rate 88 84 Respiratory Rate 16 Blood Pressure 146/86 H Pulse Oximetry Intake & Output 01/18/18 01/19/18 01/19/18 18:59 06:59 18:59 Intake Total 1892 / 1892 400 / 400 Output Total 800 / 800 650 / 650 Balance 1092 / 1092 -250 / -250 Weight 93.5 kg Intake: Oral 1892 / 1892 400 / 400 Output: Urine 800 / 800 650 / 650 Other: # Voids 3 2 Date of Last Bowel Movement 01/18/18 01/19/18 # Bowel Movements 1 - Constitutional no acute distress - Routine HEENT Exam Head: Present: normocephalic, atraumatic Eye: Present: EOMI, PERRL, normal accommodation - Routine Neck Exam Present: supple, full ROM - Routine Chest/Breast/Axilla Exam Chest wall: Present: tenderness - Routine Cardiovascular Exam Present: RRR, S1, S2 - Routine Abdominal Exam Present: soft, normoactive bowel sounds - Routine Extremities Exam Present: full ROM, pulses intact, normal capillary refill - Routine Skin Exam Present: intact, wounds Comments: prevena dressing to chest , incision intact to left leg - Routine Neurological Exam Present: alert, oriented X3, CN II-XII intact Results Procedures completed during hospitalization: Date of procedure: 01/13/18 Anesthesia: GETA Surgeon: Chu Mcpherson MD Operation and Findings: PREPROCEDURE DIAGNOSES 1. Severe Multi Vessel Coronary Artery Disease. 2. Unstable angina 3. Diabetes mellitus with neuropathy POSTPROCEDURE DIAGNOSES Same SURGICAL PROCEDURE 1. Urgent Off-pump Coronary Artery Bypass Grafting x 3 with Left Internal Mammary Artery (WATTERS) to Left Anterior Descending (LAD), reverse saphenous vein graft to obtuse Marginal branch of the left Circumflex artery, reverse saphenous vein graft to the distal right Coronary artery 2. Left leg Endoscopic Vein [place] 3. Intraoperative Vein Mapping. Labs on day of discharge: Labs from last 24 hours 01/19/18 01/19/18 01/18/18 07:57 04:04 19:51 Sodium 140 Potassium 4.0 Chloride 102 Carbon Dioxide 30.3 Anion Gap 8 BUN 14 Creatinine 0.73 Estimated GFR Greater than 89 POC Glucose 133 H 209 H Random Glucose 148 H Calcium 8.7 Total Bilirubin 0.2 AST 18 ALT 22 Alkaline Phosphatase 74 Total Protein 6.8 Albumin 2.5 L Lipase 234 01/18/18 16:26 Sodium Potassium Chloride Carbon Dioxide Anion Gap BUN Creatinine Estimated GFR POC Glucose 234 H Random Glucose Calcium Total Bilirubin AST ALT Alkaline Phosphatase Total Protein Albumin Lipase - Impressions ITS Impressions Chest X-Ray 01/16/18 06:00 CONCLUSION: 1. Interval removal of mediastinal chest tube and left-sided chest tube with no pneumothorax. 2. Mid inspiratory study with small left effusion. Abdomen X-Ray 01/17/18 09:50 CONCLUSION: Negative. I do not see etiology for patient's abdominal pain. Discharge Plan - Discharge Disposition Patient Disposition: /Home Health Service - Discharge Condition Condition: Good - Discharge Order Discharge Orders: Discharge Order (Routine); Ordered 01/19/18 Ordered By: Suzanne Hines - Discharge Details Anticipated Discharge Date: 01/19/18 - Physicians Team Primary Care Provider: Primary Care Solitarioi,Torie Attending Provider: Chu Mcpherson Other Providers: Himanshu Shrestha MD ; Chu Mcpherson MD ; Jasper Ruiz DO - Rxs /Orders / Referrals /Forms Prescriptions: New aspirin [Enteric Coated Aspirin] 81 mg Tablet,Delayed Release (Dr/Ec) 81 mg PO DAILY Qty: 30 RF: 2 atorvastatin 40 mg Tablet 40 mg PO DAILY Qty: 30 RF: 2 clopidogrel [Plavix] 75 mg Tablet 75 mg PO DAILY Qty: 30 RF: 2 docusate sodium [DOK] 100 mg Capsule 100 mg PO BID Qty: 30 RF: 0 insulin aspart U-100 [Novolog U-100 Insulin aspart] 100 unit/mL Solution See Protocol subcut ACHS CORRECT SUGARS Qty: 1 RF: 1 insulin glargine [Lantus U-100 Insulin] 100 unit/mL Solution 10 unit SUBCUT HS Qty: 1 RF: 1 beilmeya-kpak-OG-calcium-mins [Thera M Plus (ferrous fumarat)] 9 mg iron-400 mcg Tablet 1 tab PO DAILY Qty: 30 RF: 2 tramadol [Ultram] 50 mg Tablet 50 mg PO Q6H PRN (Reason: Acute Pain) Qty: 40 RF: 0 (DME) blood-glucose meter Kit Qty: 1 RF: 0 (DME) insulin syringe-needle U-100 [BD Insulin Syringe] 1 mL 25 gauge x 5/8" Syringe Qty: 100 RF: 1 (DME) lancets-blood glucose strips 30 gauge Combo Pack Qty: 200 RF: 0 Continue gabapentin [Neurontin] 100 mg Capsule 100 mg PO DAILY glimepiride 4 mg Tablet 4 mg PO QAM metformin 1,000 mg Tablet 1,000 mg PO DAILY metoprolol tartrate 50 mg Tablet 50 mg PO BID omeprazole 20 mg Capsule,Delayed Release(Dr/Ec) 20 mg PO DAILY Discontinued atorvastatin 20 mg Tablet 20 mg PO DAILY nitroglycerin 0.4 mg Tablet, Sublingual 0.4 mg SUBLINGUAL Q5-15M PRN (Reason: Chest Pain) Ambulatory Orders / Order Sets / DME: Walker With Front Wheels (1 each) (Routine) Location: Determined by Patient Ordered By: Suzanne Hines Referrals: Paul Rocha Dr [Other] - See Instructions ( Your appointment has been scheduled for [02/15/18] at [2:15 pm] If you cannot make this appointment, please call the office to reschedule ) Kathy Galvan [Other] - See Instructions ( Your appointment has been scheduled for [01/30/18] at [11:00 am] If you cannot make this appointment, please call the office to reschedule ) [facility], [Agency] - See Instructions Suzanne Hines [ADVANCE RN PRACTITIONER] - See Instructions ( Your appointment has been scheduled for [02/06/18] at [10:30 am] If you cannot make this appointment, please call the office to reschedule ) - Discharge Instructions Patient Printed Instructions: Foot Care for People with Diabetes (DC), Type 2 Diabetes in Adults (DC), Basic Carbohydrate Counting (DC), Managing Diabetes During Sick Days (DC), Coronary Artery Bypass Graft (DC) Additional Instructions: HOME HEALTH CARE HAS BEEN ARRANGED WITH [facility], CONTACT # [phone] PREVENA Single Use Negative Wound Therapy System Caregiver Instruction Sheet 1. A Prevena dressing system was applied to the chest incision during surgery , to promote wound healing. It works via a suction device (negative pressure wound therapy) to remove low to moderate levels of exudate (drainage) and infectious materials. We recommend that the device stay in place for up to seven days, from day of surgery. 2. Day of Surgery___01/13/18 Day of Removal ____/ 3. The dressing should only be removed by a health healthcare project manager. Please arrange removal of device to coincide with Home Health visit and or with Nursing staff at Rehab 4. If skin reddening or irritation of skin occurs, or excessive drainage, please notify the Cardiovascular Surgeons office at [phone]. 5. Light showering is permissible; however the pump should be disconnected and placed in safe location, where it will not get wet. The dressing should not be exposed to direct spray or submerged in water. No bath tub / shower only. Ensure the end of the tubing attached to the dressing is facing down so that water does not enter the top of the tube. 6. To remove Prevena dressing: press purple button to turn off device / remove the suction. Then disconnect the tubing from the pump. The fixation strips should be stretched away from the skin and the dressing lifted at one corner and peeled back until it has been fully removed. 7. After removal, it is ok to shower daily using liquid dial soap and clean wash cloth, rinse and pat dry, and leave incision open to air dry. For any concerns regarding Prevena dressing, and or wounds, please contact Anna Brooks, patient navigator at [phone] or notify the Cardiovascular Surgeons office at [phone]. Incentive spirometry Q1 hr x 10, while awake, also use acapella device hourly whole awake Sternal Breast Bone Precautions: NO pushing or pulling, ( pt must use sternal pillow to support chest with all activities and with coughing ( takes up to 3 months breast bone to heal ) Daily incision care: ok to shower daily, no tub bath. Wash all incisions with liquid dial soap, clean wash cloth to each site, rinse and pat dry. Observe for any signs of infection, such as drainage which is dark yellow, [place], green or foul smelling. Immediately report to the surgeon any drainage from the chest incision, or legs, and for any abnormal drainage from the chest tube sites. Notify surgeon if any temp >101.5 degrees F. When specialty dressing removed/ or if you do not have one, continue to shower daily as above, then rinse and pat incision dry and paint with betadine daily x 5 days. Allow steri strips to fall off if you have any. Avoid lotions, creams, salves, oils, etc. for the first month Please see attached forms for additional instructions regarding post Open Heart specialty wound vacuum dressings. FREDERIC or Prevena , Dressing to be removed by Nursing staff on __// F/U appointment: as per DC instructions: PCP in 2 weeks, CV surgeon 2 weeks, Sas Clinical Programmer 3-4 weeks For any questions regarding incisions/ dressing / meds / post op care or above Symptoms, Monday 8am-5pm Heart & Vascular Surgery Office ( Dr. Mcpherson & Dr. Mujica), After Hours / Nights (5pm -8am) Weekends and Holidays Please call [facility] Cardiac Intermediate Care Unit (CIC) Charge Nurse
== END 2018-01-19 15:30 | disposition home health service (06) | DRG 236 ==
LOC: HCVI 14:15 → HCPC 01-14 19:31
PROVIDERS: ADMIT Thoracic Surgery (Cardiothoracic Vascular Surgery); ATTEND Thoracic Surgery (Cardiothoracic Vascular Surgery)
CPT/HCPCS: 36430; 71010; 71045; 74000; 74018; 76937; 80048; 80053; 81001; 82150; 82947; 82948; 82962; 83036; 83690; 83735; 84100; 84484; 85025; 85027; 85610; 85730; 86850; 86900; 86901; 86923; 87641; 93005; 93306; 94002; 94150; 94640; 94650; 94651; 94656; 94664; 94665; 94667; 97110; 97116; 97162; 97167; 97530; C1768; J0131; J0690; J1644; J1815; J1817; J1885; J1940; J2250; J2370; J2405; J2720; J3010; J3370; J3475; J3480; J7040; J7050; J7120; P9016; P9045; Q9963